=== PATIENT | female | born 2000 | race Caucasian/White ===

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

== ENCOUNTER 2020-08-31 17:54 | Emergency (ER) | payer OTHER, SELFPAY ==
--- NOTE | ~2020-08-31 | XR_ITS ---
XR shoulder RT min 2V 08/31/2020 18:34 INDICATION: Limited range of motion. Right shoulder pain. PROCEDURE: 4 views right shoulder COMPARISON: No prior studies for comparison. FINDINGS: Fracture, dislocation or subluxation is not identified. The soft tissues appear within norm al limits. No foreign bodies are identified. IMPRESSION: 1: NO ACUTE BONE OR JOINT ABNORMALITY IDENTIFIED. Reviewed, dictated and finalized at location A. [employer]
[2020-08-31 18:00] VITALS: BP 126/63; PULSE 63; RESP 18; TEMP 36.9; O2SAT 100
--- NOTE | 2020-08-31 18:16 | ED.UPPEXIN ---
HPI - Extremity Injury (Upper) General Chief Complaint: Extremity Injury, Upper Stated Complaint: right shoulder pain Time Seen by Provider: 08/31/20 18:17 Source: patient Mode of arrival: ambulatory Limitations: no limitations History of Present Illness HPI narrative: Anjum Joseph is a 19 yo female with no PMH who has R shoulder pain x 1 week. 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 Taken some ibuprofen but has not really improved. No obvious trauma other than repetitive work Related Data Allergies Allergy/AdvReac Type Severity Reaction Status Date / Time No Known Allergies Allergy Verified 11/15/19 11:02 Review of Systems Review of Systems: Narrative: CONSTITUTIONAL: Denies fever, chills, sweats. EYES: Denies visual changes, redness, discharge. ENT: Denies rhinorrhea, congestion, sore throat, otalgia. CARDIOVASCULAR: Denies chest pain, palpitations, edema. RESPIRATORY: Denies dyspnea, wheezing, cough GASTROINTESTINAL: Denies abdominal pain, nausea, vomiting, diarrhea. GENITOURINARY: Denies dysuria, hematuria, abnormal discharge SKIN: Denies rash or itching. Right shoulder pain NEUROLOGIC: Denies numbness, or focal weakness. PSYCHIATRIC: Denies anxiety or depression. [facility] Past Medical History Medical History No active medical problems Family History Family History Father High cholesterol Social History Social History Smoking status: Never smoker Alcohol intake: never Comments At time of signature, I agree with nursing past medical, surgical, social and family history. There is no relevant family history pertinent to the presenting complaint. Exam Narrative: Exam Narrative: GENERAL: This is a well-nourished, well-developed patient, in mild distress. HEAD: normocephalic, atraumatic. EYES: PERRL. Sclera clear/white. Vision is grossly intact. EARS: External ears normal, auditory canals clear and without drainage, TMs normal without perforation. Hearing grossly intact. NOSE: External nose normal without nasal discharge, nares without redness, no rhinorrhea. THROAT: Mucous membranes moist, posterior pharynx NECK: Neck supple, non-tender CARDIOVASCULAR: Regular rate and rhythm without murmurs, gallops, or rubs. RESPIRATORY: Clear to auscultation. Breath sounds equal bilaterally. No wheezes, rales, or rhonchi. GASTROINTESTINAL: Abdomen soft, non-tender, SKIN: warm, intact with no suspicious lesions or rash, good texture and turgor. NEURO: awake, alert, and oriented to person, place and time. There were no obvious focal neurologic abnormalities. Steady gait EXTREMITIES: Pain on arm extension, increased pain with raising arms over head, posterior movement. Point tenderness at 12 o clock on deltoid, stays within rotator cuff area. No neck tenderness or radiation down arm BACK: Nontender without deformity Course Course Emergency Course: Patient came to express care with right arm pain X-ray of right shoulder done-results are Patient started on Toradol and muscle relaxant- given baclofen Shoulder sling If not improved follow-up with orthopedic surgery Vital Signs Vital signs: Vital Signs Temperature 98.5 F 08/31/20 18:00 Pulse Rate 63 08/31/20 18:00 Respiratory Rate 18 08/31/20 18:00 Blood Pressure 126/63 08/31/20 18:00 Pulse Oximetry 100 08/31/20 18:00 Temperature 98.5 F 08/31/20 18:00 Pulse Rate 63 08/31/20 18:00 Respiratory Rate 18 08/31/20 18:00 Blood Pressure 126/63 08/31/20 18:00 Pulse Oximetry 100 08/31/20 18:00 MDM - Extremity Injury (Upper) Differential Diagnosis Differential diagnosis: Likely sprain and strain of wrist, dislocation of shoulder and ot
== END 2020-08-31 18:59 | disposition home or self-care (01) ==
PROVIDERS: Emergency Provider Nurse Practitioner
DX: S46.911A Strain of unspecified muscle, fascia and tendon at shoulder and upper arm level, right arm, initial encounter (principal); X58.XXXA Exposure to other specified factors, initial encounter
CPT/HCPCS: 73030; 99213; A4565; G0463

== ENCOUNTER 2020-12-09 12:24 | Emergency (ER) | payer OTHER, SELFPAY | END 2020-12-09 12:48 | PROVIDERS: Emergency Provider Nurse Practitioner Family; PCP Family Medicine | DX: Z53.21 Procedure and treatment not carried out due to patient leaving prior to being seen by health care provider (principal) | CPT/HCPCS: 99199 ==

== ENCOUNTER 2020-12-10 14:10 | Emergency (ER) | payer OTHER, SELFPAY ==
--- NOTE | ~2020-12-10 | XR_ITS ---
EXAMINATION: XR ankle LT min 3V EXAM DATE: 12/10/2020 14:40 INDICATION: Fell 1 wk ago, pain anterior medial LT ankle. Initial encounter. TECHNIQUE: Left ankle frontal, lateral and oblique projections obtained and reviewed. Comparison is m shon to prior examination from 11/15/2019. FINDINGS: The left ankle mortise appears intact. There are no acute fractures or dislocations ident ified. There is no subcutaneous gas. There is mild soft tissue swelling anteriorly. There are no r adiopaque foreign bodies. IMPRESSION: 1. Left ankle exam without acute osseous findings. Reviewed, dictated and finalized at location A.
[2020-12-10 14:19] VITALS: BP 148/63; PULSE 89; RESP 16; TEMP 37.7; O2SAT 99
--- NOTE | 2020-12-10 14:26 | ED.GENADULT ---
HPI - General Adult General Chief complaint: Extremity Injury, Lower Stated complaint: left foot injury Time Seen by Provider: 12/10/20 14:26 Source: patient Mode of arrival: ambulatory Limitations: no limitations History of Present Illness HPI narrative: 20-year-old female patient presents to the [facility] with complaints of left ankle pain x1 week. Patient states she fell down some stairs about a week ago. Patient states she has been able to walk on it but it is painful with putting pressure on it. Patient states she has been taking ibuprofen for the pain and icing it. Denies any numbness or tingling to the toes. Related Data Home Medications Medication Instructions Recorded Confirmed No Home Medications 12/10/20 12/10/20 Allergies Allergy/AdvReac Type Severity Reaction Status Date / Time No Known Allergies Allergy Verified 12/10/20 14:30 Review of Systems Review of Systems: Narrative: CONSTITUTIONAL: Denies fever, chills, or sweats. EYES: Denies visual changes, redness, or discharge. ENT: Denies rhinorrhea, congestion, sore throat, or otalgia. CARDIOVASCULAR: Denies chest pain, palpitations, or edema. RESPIRATORY: Denies cough or dyspnea. GASTROINTESTINAL: Denies abdominal pain, nausea, vomiting, or diarrhea. GENITOURINARY: Denies dysuria or hematuria. SKIN: Denies rash or itching. MUSCULOSKELETAL: Denies back pain, joint pain, or myalgia. Positive left ankle pain NEUROLOGIC: Denies headache, numbness, or weakness. PSYCHIATRIC: Denies anxiety or depression. [facility] Past Medical History Medical History (Updated 12/10/20 @ 15:07 by TASHA Santiago) Asthma Fractures Wrist Surgical History Surgical History (Updated 12/10/20 @ 14:27 by TASHA Santiago) History of tonsillectomy Family History Family History Father High cholesterol Social History Social History Smoking status: Never smoker Alcohol intake: never Comments At the time of my signature I agree with nursing past medical history, surgical, social, and family history. There is no relevant family history pertinent to the presenting complaint. Exam Narrative: Exam Narrative: GENERAL: Well-appearing, well-nourished, and in no acute distress. HEAD: Normocephalic, atraumatic. EYES: PERRLA and EOMI. ENT: Nares clear, no rhinorrhea or epistaxis. Mucous membranes moist. NECK: Supple. No lymphadenopathy CHEST: Clear to auscultation. No respiratory distress. HEART: Regular rate and rhythm. No murmur heard. Normal peripheral pulses. ABDOMEN: Soft, nontender, nondistended, normal active bowel sounds. EXTREMITIES: Patient is able to bear weight and ambulate but complaining of pain to left ankle with ambulation. The L ankle is without obvious asymmetry or deformity when compared to the R ankle. Patient can flex/extend, invert/[place]. No obvious surface trauma, ecchymosis, or soft tissue swelling. bony tenderness to palpation over the medial malleolus. Anterior talofibular ligament, posterior talofibular ligament, calcaneofibular ligament nontender and without swelling. tenderness of the midfoot, no pain over the proximal fifth metatarsal. Good DP and posterior tibial pulses and sensation to light touch normal. Talar tilt test is negative for ligament laxity to valgus or vargus stress. Negative anterior draw. Peroneal nerve is intact with strong eversion and plantar flexion. SKIN: Warm, dry, no rash. NEURO: No focal deficits. Alert and oriented x3. Course Reevaluation(s) Reevaluation #1: Reevaluated patient after her x-rays had resulted. Notified her that her x-ray is negative for any acute fracture. Discussed with her this is most likely a sprain. Discussed with her we will go ahead and wrap the left ankle and she can take Tylenol and ibuprofen as needed for pain as well as elevate and ice it to help with swelling and pain. Caroline
[2020-12-10 14:30] VITALS: BP 148/63; PULSE 89; RESP 16; TEMP 37.7; O2SAT 99
== END 2020-12-10 15:11 | disposition home or self-care (01) ==
PROVIDERS: Emergency Provider Nurse Practitioner Family; PCP Family Medicine
DX: S93.402A Sprain of unspecified ligament of left ankle, initial encounter (principal); W10.9XXA Fall (on) (from) unspecified stairs and steps, initial encounter; J45.909 Unspecified asthma, uncomplicated
CPT/HCPCS: 73610; 99213; G0463

== ENCOUNTER 2021-06-07 08:17 | Emergency (ER) | payer OTHER, SELFPAY ==
[2021-06-07 08:22] VITALS: BP 133/82; PULSE 83; RESP 16; TEMP 36.6; O2SAT 99
--- NOTE | 2021-06-07 08:44 | ED.FEMALEGU ---
HPI - Female Genitourinary General Chief complaint: Urogenital-Female Stated complaint: Poss UTi Time Seen by Provider: 06/07/21 08:29 Source: patient and RN notes reviewed Mode of arrival: ambulatory Limitations: no limitations History of Present Illness HPI Narrative: Patient presents today complaint of a 4-day history of lower abdominal pressure radiating to the back, dysuria, frequency. Denies hematuria, nausea or vomiting, sweats or chills, fever. Patient has been taking Azo without relief. No recent antibiotic use. MD elicited complaint: UTI Related Data Allergies Allergy/AdvReac Type Severity Reaction Status Date / Time No Known Allergies Allergy Verified 06/07/21 08:28 Review of Systems Review of Systems: CONSTITUTIONAL: Denies body aches, fever, chills, or sweats. EYES: Denies visual changes, redness, or discharge. ENT: Denies rhinorrhea, congestion, sore throat, or otalgia. CARDIOVASCULAR: Denies chest pain, palpitations, or edema. RESPIRATORY: Denies cough or dyspnea. GASTROINTESTINAL: Denies nausea, vomiting, or diarrhea.+ Abdominal pressure, flank pain GENITOURINARY: Denies hematuria. + Frequency, dysuria SKIN: Denies rash, itching, or wounds. MUSCULOSKELETAL: Denies back pain, joint pain, or myalgia. NEUROLOGIC: Denies headache, numbness, tingling, or weakness. PSYCH: Denies depression or anxiety. [facility] Past Medical History Medical History Asthma Fractures Wrist Surgical History Surgical History History of tonsillectomy Family History Family History Father High cholesterol Social History Social History Smoking status: Never smoker Alcohol intake: never Comments At time of signature, I have reviewed and agree with nursing past medical, surgical, social and family history unless otherwise noted. Please see nursing chart for further information. There is no relevant family history pertinent to the presenting complaint Exam Narrative: GENERAL: Well-appearing, well-nourished, and in no acute distress. HEAD: Normocephalic, atraumatic. EYES: EOMI. No redness or drainage. Conjunctivae normal. ENT: Mucous membranes pink and moist. NECK: Normal AROM. Supple. No lymphadenopathy. CHEST: No respiratory distress. Clear to auscultation. HEART: Regular rate and rhythm. No murmur appreciated. Normal peripheral pulses. ABDOMEN: Soft, nondistended, normal active bowel sounds.+ Suprapubic pressure, + mild bilateral CVAT MUSCULOSKELETAL: No bony tenderness. EXTREMITIES: Normal range of motion. No edema. SKIN: Warm, dry, no rash. Capillary refill normal. Normal skin turgor. NEURO: No focal deficits. Alert and oriented x3. Gait steady. PSYCH: Normal affect. No signs of depression or anxiety. Course Vital Signs Vital signs: Vital Signs Temperature 98 F 06/07/21 08:22 Pulse Rate 83 06/07/21 08:22 Respiratory Rate 16 06/07/21 08:22 Blood Pressure 133/82 06/07/21 08:22 Pulse Oximetry 99 06/07/21 08:22 Temperature 98 F 06/07/21 08:22 Pulse Rate 83 06/07/21 08:22 Respiratory Rate 16 06/07/21 08:22 Blood Pressure 133/82 06/07/21 08:22 Pulse Oximetry 99 06/07/21 08:22 Reviewed. Pt has been instructed to follow up with her PCP regarding her elevated blood pressure today. MDM - Female Genitourinary Differential Diagnosis Differential diagnosis: Likely urinary tract infection, vaginitis, cystitis and other (Pyelonephritis, interstitial cystitis) Lab Data Attestation: I reviewed the patient's lab results. Labs: Urine Glucose Negative Reference Range: Negative Urine Bilirubin Negative Reference R
== END 2021-06-07 08:50 | disposition home or self-care (01) ==
PROVIDERS: Emergency Provider Nurse Practitioner; PCP Family Medicine
DX: N30.01 Acute cystitis with hematuria (principal); J45.909 Unspecified asthma, uncomplicated
CPT/HCPCS: 81003; 87077; 87086; 87088; 87186; 99213; G0463

== ENCOUNTER 2023-03-13 09:28 | Emergency (ER) | payer OTHER, SELFPAY ==
[2023-03-13 09:36] VITALS: BP 116/63; PULSE 79; RESP 18; TEMP 36.8; O2SAT 100
--- NOTE | 2023-03-13 10:14 | ED.GENADULT ---
HPI - General Adult General Chief complaint: Urogenital-Female Stated complaint: Urinary Problem ( ) Source: patient Mode of arrival: ambulatory Limitations: no limitations History of Present Illness HPI narrative: Patient presents for evaluation of urinary symptoms since last night. She is currently , 19 weeks gestation, and had an appointment with her OBGYN yesterday morning. She was not experiencing urinary symptoms at that time. She has since experience dysuria, urinary urgency/frequency, suprapubic pressure and mild right-sided flank pain. No fever, chills, nausea, vomiting, hematuria, vaginal bleeding or discharge. She has already had a confirmed IUP per U/S during this . . Related Data Home Medications Medication Instructions Recorded Confirmed aspirin 81 mg tablet,delayed 81 mg PO DAILY 03/13/23 03/13/23 release ferrous fumarate 324 mg (106 mg 324 mg PO DAILY 03/13/23 03/13/23 iron) tablet (Ferrocite) vit no.95-ferrous 1 tablet PO DAILY 03/13/23 03/13/23 fumarate 28 mg-folic acid 800 mcg tablet () Allergies Allergy/AdvReac Type Severity Reaction Status Date / Time No Known Allergies Allergy Verified 03/13/23 10:10 Review of Systems Review of Systems: CONSTITUTIONAL: Denies fever, chills, or sweats. EYES: Denies visual changes, redness, or discharge. ENT: Denies rhinorrhea, congestion, sore throat, or otalgia. CARDIOVASCULAR: Denies chest pain, palpitations, or edema. RESPIRATORY: Denies cough or dyspnea. GASTROINTESTINAL: Denies abdominal pain, nausea, vomiting, or diarrhea. GENITOURINARY: Reports dysuria, urinary frequency/hesitancy, suprapubic pressure. Denies hematuria, vaginal bleeding/discharge SKIN: Denies rash or itching. MUSCULOSKELETAL:Reports mild right sided flank pain. Denies back pain otherwise, joint pain, or myalgia. NEUROLOGIC: Denies headache, numbness, dizziness, or weakness. PSYCHIATRIC: Denies anxiety or depression. [facility] Past Medical History Medical History Asthma Fractures Wrist Surgical History Surgical History History of tonsillectomy Family History Family History Father High cholesterol Social History Social History Smoking status: Never smoker Alcohol intake: never Substance use: never Additional living arrangements comments: Lives with fiance Gender identity (if verbalized by the patient): Female Sexual Orientation (if Verbalized by the Patient): Straight or Heterosexual Spiritual care concerns: No Exam Narrative: GENERAL: Well-appearing, well-nourished, and in no acute distress. HEAD: Normocephalic, atraumatic. EYES: PERRLA and EOMI. ENT: Nares clear, no rhinorrhea or epistaxis. Mucous membranes moist. Oropharynx without tonsillar hypertrophy exudate or other lesions. Bilateral TMs pearly sanchez nonbulging NECK: Supple. No adenopathy or masses. No carotid bruits or JVD CHEST: Clear to auscultation. No respiratory distress. No wheezes rales or rhonchi HEART: Regular rate and rhythm. No murmur heard. Normal peripheral pulses. ABDOMEN: Soft, nontender, nondistended, normal active bowel sounds. BACK: No CVA tenderness EXTREMITIES: Normal range of motion. No edema. SKIN: Warm, dry, no rash. NEURO: No focal deficits. Alert and oriented x3. PSYCH: Normal mood and affect. Course Course Emergency Course: This is a 22-year-old female who presented for evaluation of urinary symptoms. She has leukocytes present today. Will tx with cefpodoxime. Send urine for culture. Follow with OBGY and primary provider next week. Go to the ER for worsening symptoms. Pt in agreement with plan of care. Level of Care: Express Care Visit Vital Signs Vi
== END 2023-03-13 10:15 | disposition home or self-care (01) ==
PROVIDERS: Emergency Provider Nurse Practitioner
DX: O23.42 Unspecified infection of urinary tract in pregnancy, second trimester (principal); N39.0 Urinary tract infection, site not specified; Z3A.19 19 weeks gestation of pregnancy; O99.512 Diseases of the respiratory system complicating pregnancy, second trimester; J45.909 Unspecified asthma, uncomplicated; Z79.82 Long term (current) use of aspirin
CPT/HCPCS: 81003; 87077; 87086; 87186; 99213; G0463

== ENCOUNTER 2025-03-21 17:53 | Emergency (ER) | payer SELFPAY ==
--- NOTE | ~2025-03-21 | XR_ITS ---
EXAM: XR finger 1st LT min 2V DATE: 03/21/2025 18:17 HISTORY: JAMMING INJURY, PROX PHALANX PAIN . COMPARISON: None available. FINDINGS: Normal mineralization. No fracture or dislocation. No lytic or blastic lesion. Joint space s are maintained. No erosion or periosteal change. Soft tissues within normal limits. IMPRESSION: No acute osseous finding in the left thumb. Reviewed, dictated and finalized at location K.
--- OUTSIDE RECORDS SUMMARY | 2025-03-21 17:56 | XMS_ITS | Clinical Summary ---
Author Organization [facility] Address [address] [place] [address] Phone Care Team Providers Care Data Processing Control Clerk Name Role Phone Chucho Kruger MD Unavailable [phone] Allergies Active Allergy Reactions Criticality Noted Date Comments Ketorolac Tromethamine Swelling 05/04/2017 Tramadol Vomiting 05/04/2017 Medications No known medications Active Problems Problem Noted Date Diagnosed Date Acute appendicitis, unspecified acute appendicit is type 12/31/2023 Cough, persistent 11/07/2018 Well woman exam (no gynecological exam) 11/08/19 19 Need for vaccination for meningococcus 9 Cyst of subcutaneous tissue 11/07/2018 Immunizations Immunization Administration Dates Next Due DTAP VACCINE 01/25/2006, 3,03/11/2001,01/20,2000 HEP B/HIB Combined Vaccine 03/11/2001,2000 Hepatitis A Vaccine,unspecif ied Formulation 08/20/2005 Hepatitis A, Pediatric, Unsp ecified Formulation 06/22/2007 Hepatitis B Vaccine,unspecif ied Formulation 2000 Hib Vaccine,unspecified Formulation 01/20/2001 Hpv, Unspecified Formulation 06/14/2012 Human Papillomavirus (HPV) 9 -valent Vaccine 09/19/2015,06/26/2015 Influenza Vaccine, Quadrivalent, PF 06/26/2015,1 Influenza Vaccine,unspecifie d Formulation 06/14/2012,08/14/2011,08/15/2003 MMR Vaccine 01/25/2006,09/13/2002 Meningococcal Group B OMV 02/03/2017 Meningococcal MCV4O 11/07/2018 Meningococcal Vaccine 02/03/2017 Meningococcal Vaccine, Unspe cified Formulation 06/14/2012 Pneumococcal PCV, Unspecifie d Formulation 03/11/2001,2000 Pneumococcal Vaccine Adult - 23 Valent 1 Polio Vaccine,unspecified Formulation ,09/13/2002,01/20/2001,11/19 TDAP Vaccine 06/14/2012 Varicella Vaccine Live 06/22/2007,09/13/2002 Social History Tobacco Use Types Packs/Day Years Used Date Smoking Tobacco: Never Smokeless Tobacco: Never Tobacco Cessation:Counseling Given: Not Answered Alcohol Use Standard Drinks/Week Comments No 0 (1 standard drink = 0.6 oz pur e alcohol) PHQ-2 Answer Date Recorded Total Score - Questions 1-9 0 04/2021 Sexually Active Control Partners Comments Yes Male Comments No Sex and Gender Information Value Date Recorded Sex Assigned at Not on file Legal Sex Female 9:06 PM CDT Gender Identity Not on file Sexual Orientation Not on file Last Filed Vital Signs Vital Sign Reading Time Taken Comments Blood Pressure 131/82 02/06/2024 3:30 AM CDT Pulse 63 02/06/2024 3:30 AM CDT Temperature 36.4 C (97.6 F) 02/05/2024 11:51 PM CDT Respiratory Rate 17 02/06/2024 3:30 AM CDT Oxygen Saturation 98% 02/06/2024 3:30 AM CDT Inhaled Oxygen Concentration - - Weight 122.5 kg (270 lb) 02/05/2024 11:51 PM CDT Height 165.1 cm (5' 5) 02/05/2024 11:51 PM CDT Body Mass Index 44.93 02/05/2024 11:51 PM CDT Plan of Treatment Health Maintenance Due Date Last Done Comments Hepatitis C Virus (HCV) Screening 2000 SARS-COV-2 Immunization ( season) 2024 Pap Smear 04/28/2025 04/28/2022 Influenza Immunization (#1) 05/07/202506/07, 06/26/2014, 06/14/2012, Additional history exists DTaP/Tdap/Td Immunization (8 - Td or Tdap) 04/29/2033 04/29/2023, 06/14/2012, 01/25/2006, Additional history exists Respiratory Syncytial Virus (RSV) Immunization (Adult) (1 - 1-dose 75+ series) 2075 Hepatitis B Immunization Completed 001, 2000, 2000 Pneumococcal Immunization Combined Aged Out 03/11/2001, 01/20/2001, 2000 No longer eligible based on patient's age to complete this topic Human Papillomavirus (HPV) Immunization Completed 09/19/2015, 06/26/2015, 06/14/2012 Meningococcal B Immunization Discontinued 02/03/2017 Meningococcal Immunization (ACWY) Completed 11/07/2018, 02/03/2017, 06/14/2012 Rotavirus Immunization Aged Out No lo nger eligible based on patient's age to complete this topic Procedures Procedure Name Priority Date/Time Associated Diagnosis Comments PATHOLOGY CYTOLOGY WOODEN TANK ERECTOR 04/28/2022 12:00 AM CDT from Last 3 Months or Most Recently Relevant to Health Maintenance Results * PATHOLOGY CYTOLOGY WOODEN TANK ERECTOR (04/28/2022 12:00 AM CDT) 04/28/2022 us Not On File Provider PATHOLOGY/CYTOLOGY ORDERABL ES Final Result SCAN from Last 3 Months or Most Recently Relevant to Health Maintenance Insurance MEDICAID [place] Advance Directives * Full Code (Latest Code Status on File) Date Activated Date Inactivated Comments 12/31/2023 11:08 AM 12/31/2023 3:18 PM CPR-Full Tr eatment: FULL ARREST: Attempt Resuscitation/CPR wit intubation and mechanical ventilation. PRE-ARREST: Use entire range of life support measures to stabilize the patient. Care Teams Data Processing Control Clerk Relationship Specialty Start Date End Date Chucho Kruger MD [address] [id number] Consulting Physician General Surgery 01/11/24
--- OUTSIDE RECORDS SUMMARY | 2025-03-21 17:56 | XMS_ITS | Clinical Summary ---
Author Organization [facility] Address [address] [place] [address] Care Team Providers Care Edge Stainer Machine Name Role Phone Cristin Alvares MD Primary Care Provider [phone] Allergies Active Allergy Reactions Criticality Noted Date Comments Ketorolac Tromethamine Swelling Medium 05/04/2017 Tramadol Vomiting Low 05/04/2017 Medications Ferrocite 324 mg (106 mg iron) tablet Take 1 tablet by mouth daily 3 Active 28 mg iron- 800 mcg tablet Take 1 tablet by mouth daily 3 Active benzocaine-ment hoL (DERMOPLAST) 20-0.5 % aerosolIndicati ons:Minor Skin Wound Pain Apply 1 Application (1 spray total) topically as needed for other (perianal area for pain) 78 g 3 Active docusate sodium (COLACE) 100 mg capsuleIndicati ons:constipatio n,Stool Softener Take 1 capsule (100 mg total) by mouth 2 (two) times a day as needed for constipation for up to 18 days 18 capsule 3 Active Active Problems Problem Noted Date Diagnosed Date hemorrhage 08/13/2023 41 weeks gestation of 08/09/2023 Comments Yes Immunizations Immunization Administration Dates Next Due Varicella 08/13/2023 Surgical History Surgery Date Site/Laterality Comments [place] TONSILLECTOM[place] PRIMARY/SEC ONDARY <AGE 12 Tonsillectomy - 2004 [facility] (Added by [facility] Conv) ADENOIDECTOMY Medical History Medical History Date Comments Wrist fracture, bilateral Asthma when she was 11 was last time used inhaler Social History Tobacco Use Types Packs/Day Years Used Date Smoking Tobacco: Former Cigarettes Smokeless Tobacco: Never Tobacco Cessation:Counseling Given: Not Answered Alcohol Use Standard Drinks/Week Comments No 0 (1 standard drink = 0.6 oz pur e alcohol) Social Connection and Isolat ion Panel [NHANES] Answer Date Recorded In a typical week, how many times do you talk on the phone with family, friends, or neighbors? More than three times a week 08/09/2023 How often do you get togethe r with friends or relatives? More than three times a week 08/09/2023 How often do you attend chur ch or religion services? Never 08/09/2023 Do you belong to any clubs o r organizations such as yarsanism groups, unions, fraternal or athletic groups, or school groups? No 08/09/2023 How often do you attend meet ings of the clubs or organizations you belong to? Never 08/09/2023 Are you , , di vorced, , never , or living with a partner? Living with partner 08/09/2023 AUDIT-C Answer Date Recorded Q1: How often do you have a drink containing alcohol? Never 08/09/2023 Q2: How many drinks containi ng alcohol do you have on a typical day when you are drinking? Patient does not drink Q3: How often do you have si x or more drinks on one occasion? Never 08/09/2023 Overall Financial Resource Strain (CARDIA) Answe r Date Recorded How hard is it for you to pa y for the very basics like food, housing, medical care, and heating? Not hard at all 08/09/2023 PHQ-2 Answer Date Recorded PHQ-2 Total Score (If total score is 3 or more points, staff should administer the PHQ-9) 0 08/09/2023 [facility] Occup[facility] ional [facility] - Occupational Stress Questionnaire Answer Date Recorded Do you feel stress - tense, restless, nervous, or anxious, or unable to sleep at night because your mind is troubled all the time - these days? Not at all 08/09/2023 Exercise Vital Sign Answer Date Recorde d On average, how many days pe r week do you engage in moderate to strenuous exercise (like a brisk walk)? 0 days 08/09/2023 On average, how many minutes do you engage in exercise at this level? 0 min 08/09/2023 Hunger Vital Sign Answer Date Recorded Within the past 12 months, y ou worried that your food would run out before you got the money to buy more. Never true 08/09/20 23 Within the past 12 months, t he food you bought just didn't last and you didn't have money to get more. Never true 08/09/2023 PRAPARE - Transportation Answer Date Re corded In the past 12 months, has l ack of transportation kept you from medical appointments or from getting medications? No 12/2022 In the past 12 months, has l ack of transportation kept you from meetings, work, or from getting things needed for daily living? No 08/09/2023 Housing Stability Vital Sign Answer Jovan e Recorded In the last 12 months, was t here a time when you were not able to pay the mortgage or rent on time? No 08/09/2023 In the last 12 months, how many places have you lived? 1 08/09/2023 In the last 12 months, was t here a time when you did not have a steady place to sleep or slept in a care home (including now)? No 08/09/2023 Personal Safety Answer Date Recorded Have you ever been in or are you currently in a harmful physical or emotional relationship or is someone making you feel afraid or unsafe? 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 SHOESHINER Gender Identity Not on file Sexual Orientation Not on file Obstetrics History Para Term AB IAB SAB Ectopic Multiple Livin g Live Births 2 1 1 0 0 0 0 0 0 1 1 Date Outcome GA Total Labor Labor/2nd/3rd Weight Sex Type Anes PTL Rhiannon A1 A5 Name Clin 2022 Term 41w 2d 12h 24m 9h 55m/2h 13m/0h 16m 3.92 kg (8 lb 10.3 oz) F Vagina l Epidur al N Livin g 9 9 Alann Amye Issac Hameed se, MD Complications:None Delivery Location:This Facil ity ([facility]) Current Last Filed Vital Signs Vital Sign Reading Time Taken Comments Blood Pressure 138/82 08/02/2024 3:30 PM SHOESHINER Pulse 72 08/02/2024 3:30 PM SHOESHINER Temperature 36.7 C (98 F) 08/02/2024 12:06 PM SHOESHINER Respiratory Rate 18 08/02/2024 3:30 PM SHOESHINER Oxygen Saturation 98% 08/02/2024 3:30 PM SHOESHINER Inhaled Oxygen Concentration - - Weight 72.6 kg (160 lb) 08/02/2024 12:06 PM SHOESHINER Height 152.4 cm (5') 08/02/2024 12:06 PM SHOESHINER Body Mass Index 31.25 08/02/2024 12:06 PM SHOESHINER Plan of Treatment Health Maintenance Due Date Last Done Comments Hepatitis C Screening 2000 Cervical Cancer Screening 04/28/2023 04/28/2022 Chlamydia and Gonorrhea (GC/CT) Screening 04/28/2023 04/28/2022 Regular Well Visit/Exam 18-64 04/28/2023 04/28/2022 Depression Screening 07/25/2024 07/25/2023, 07/25/2023, 07/11/2023, Additional history exists Influenza Vaccine (Season Ended) 2025 06/26/2015, 06/26/2014, 06/26/2014, Additional history exists DTaP/Tdap/Td Vaccine (8 - Td or Tdap) 04/29/2033 04/29/2023, 06/14/2012, 01/25/2006, Additional history exists Hepatitis B Screening Completed 03/11/2001 , 03/11/2001, 2000, Additional history exists Pneumococcal vaccine <65 Aged Out 001, 01/20/2001, 2000 No longer eligible based on patient's age to complete this topic HPV Vaccines Completed 09/19/2015, 06/07, 06/14/2012 Varicella Vaccines Completed 08/13/2023, 1 , 09/13/2002 Procedures Procedure Name Priority Date/Time Associated Diagnosis Comments N. GONORRHOEAE/C. TRACHOMATIS AMPLIFICATION Routine 04/28/2022 2:40 PM CDT Screening examination for venereal disease PAP WITH REFLEX TO HIGH RISK HPV Routine 04/28/2022 11:21 AM CDT Screening for malignant neoplasm of the cervix from Last 3 Months or Most Recently Relevant to Health Maintenance Results * N. gonorrhoeae/C. trachomatis Amplification Thin prep (04/28/2022 2:40 PM CDT) C. trachomatis Not detected Not detected ANTONIETTA N. gonorrhoeae Not detected Not detected ANTONIETTA ELIZABETH Comment: Testing performed by the [facility]. This assay detects Chlamydia trachomatis and Neisseria gonorrhoeae by nucleic acid amplification testing (NAAT). This test is approved by the [place] Food and Drug Administration and the performance characteristics have been verified by the laboratory. The performance characteristics of this test have not been evaluated in women or individuals less than 16 years of age. Thin prep (None) 04/28/2022 2:40 PM CDT 04/30/2022 8:22 AM CDT Opal Washington DO LAB MICROBIOLOGY - GENE RAL ORDERABLES Final Result [id number] [place] [address] * (ABNORMAL) Pap with reflex to High Risk HPV (04/28/2022 11:21 AM CDT) Thin prep (Pap test) 04/28/2022 11:21 AM CDT 04/28/2022 11:21 AM CDT Narrative PATHOLOGY - 04/30/2022 3:15 PM CDT [facility] Department of Pathology [address] [place] [id number] Final Report with Addendum Note to Patients: This report may contain a detailed description of human tissue sent by a health care provider to the laboratory for pathologic evaluation. The content of this report is essential for diagnosis and may provide important critical findings. This information may be unfamiliar to patients to review without a medical professional present. It is advised that the patient review this report in the presence of a health care provider who can answer questions and explain the details. Patient Name: ANJUM TRUJILLO Address: [address] [place] [address] Gender: F : 2000 (Age: 21) Service: Laboratory [facility] [id number] Patient Type: Ref Lab Taken: 04/28/2022 Received: 04/28/2022 Accessioned:: 04/29/2022 Reported: 04/30/2022 Physician(s): Carmita Brothers D.O. Diagnosis: Source of Specimen: Imaged Thinprep Pap Test w/ Reflex HPV - Manager Switch Cytologic Material Specimen Adequacy: - Satisfactory for evaluation; endocervical/transformation zone component present General Category: - Epithelial cell abnormality Interpretation/Results: - Atypical squamous cells of undetermined significance; - High risk HPV test pending -- addendum to follow JONA Finch(ASCP)Salome Elias M.D. Report Electronically Reviewed and Signed Out By Salome Elias M.D. 04/30/2022 15:15:49Addenda: HPV Test Interpretation NEGATIVE for types 16, 18, 31, 33, 35, 39, 45, 51, 52, 56, 58, 59, 66 and 68. Test performed utilizing Gen-Probe Aptima assay. JONA Finch(ASCP)Report Electronically Reviewed and Signed Out By SHERRIE FinchASCP) 05/12/2022 10:00:47 Specimen(s) Received: A: Imaged Thinprep Pap Test w/ Reflex HPV - Manager Switch Cytologic Material Clinical History: Last Menstrual Period: 03/14/2022 The Pap test is a screening test used to aid in the detection of cervical cancer and its precursors. It should not be the sole means by which malignant and premalignant lesions are diagnosed. Both false negative and false positive results may occur. It also has poor sensitivity for the detection of endometrial lesions and should not be used to evaluate suspected endometrial abnormalities. For these reasons it is most important to obtain Pap tests at regular intervals. The performance characteristics of some immunohistochemical stains, fluorescence in-situ hybridization tests and immunophenotyping by flow cytometry cited in this report (if any) were determined by the Surgical Pathology Department at [facility] as part of an ongoing quality control clerk program and in compliance with federally mandated regulations drawn from the Clinical Laboratory Improvement Act of 1988 (CLIA '88). Some of these tests rely on the use of analyte specific reagents and are subject to specific labeling requirements by the [place] Food and Drug Administration. Such diagnostic tests may only be performed in a facility that is certified by the Department of Health and Human Services as a high complexity laboratory under CLIA '88. The FDA has determined that such clearance or approval is not necessary. This test is used for clinical purposes. It should not be regarded as investigational or for research. Nevertheless, federal rules concerning the medical use of analyte specific reagents require that the following disclaimer be attached to the report: This test was developed and its performance characteristics determined by the Surgical Pathology Department [facility]. It has not been cleared or approved by the [place]. [place]. Food and Drug Administration. Opal Washington DO LAB CYTOLOGY ORDERABLES Final Result PATHOLOGY [id number] [id number] from Last 3 Months or Most Recently Relevant to Health Maintenance [place] [address] [address] [place] [address] [facility] MEDICAID [facility] MEDICAID Advance Directives For more information, please contact: [phone] * Full Code (Latest Code Status on File) Date Activated Date Inactivated Comments 08/11/2023 9:48 PM 08/13/2023 11:06 PM * Full Code Date Activated Date Inactivated Comments 08/09/2023 7:05 PM 08/11/2023 9:48 PM Full CPR in case of cardiopulmonary arrest Care Teams Edge Stainer Machine Relationship Specialty Start Date End Date Cristin Alvares MD PCP - General Family Medicine 04/19/23
--- OUTSIDE RECORDS SUMMARY | 2025-03-21 17:56 | XMS_ITS | Data Portability ---
Author Organization [facility] SAMARARobert Lopez Talia Address [address] [place] [address] Care Team Providers Care Supervisor Cook Room Name Role Phone MARJ NAVA Primary Care Provider [phone] KELSI REED [facility] Assessment Encounter Date Assessment Date Assessment LastModified by Organization Details LastModified Time 07/26/2023 07/26/2023 Pt's case was discussed w/resident. Documentation was reviewed, and I agree w/resident's note. Dr. Ivan [email or web address] Not available 07/30/2023 07:49:10 Plan of Treatment Reminders Order Date Submit Date Provider Last Modified By Organization Details Last Modified Time Details Appointments None recorded. Lab CBC w/ auto diff 2023 024 [facility], [address], [address], 4 06:22:19 urinalysi s, dipstick 2022 023 [email or web address] In-Office Order, Internal Use Only DO Not Attach Compendium DO Not Attach Compendium, Do Not Delete/merge, [id number] 3 15:57:18 urinalysi s, dipstick 2022 023 [email or web address] In-Office Order, Internal Use Only DO Not Attach Compendium DO Not Attach Compendium, Do Not Delete/merge, [id number] 3 12:04:46 Referral None recorded. Procedures None recorded. Surgeries None recorded. Imaging None recorded. Medication Orders Loestrin Fe 09/25 (28-Day) 1 mg-20 mcg (21)/75 mg (7) tablet 2023 024 [email or web address] [id number], [address] , [place], [place], [id number], 12:05:06 Patient TargetsNo targets recorded. Patient Instructions Encounter Date Encounter Id Patient Instructions Last Modified By Organization Details Last Modified Time 08/03/2023 [id number] On the date of this encounter, I saw and examined the patient, personally verifying the wagner and critical findings in the resident s note. I reviewed and agree with the resident/fellow s findings and plan. ~MD [email or web address] [email or web address] Not available 08/18/2023 09:25:21 08/24/2023 [id number] On the date of this encounter, I was immediately available to assist the resident/fellow in the care of the patient, and have reviewed and agree with the resident s findings and plan of care. ~MD Derek [email or web address] Not available 09/02/2023 09:19:38 10/07/2023 [id number] edinburgh depression scale* DAYANA Not available 10/08/2023 09:50:27 A healthy lifestyle: care instructions [email or web address] Not available 10/07/2023 16:18:32 Attending Physician Addendum I did not personally see or examine the patient with the resident. I was physically present to provide indirect supervision through entire encounter. I have reviewed the documentation and agree with the history, physical findings, work-up, and medical decision making as recorded. Elaine Beltran MD [email or web address] Not available 10/21/2023 12:05:39 Reason for Referral None Reported. Results Created Date Observation Date Name Description Value Unit Range Abnormal Flag Note LastModifiedBy Organization Detail LastModifiedTime 07/06/2007/06/2023 CBC WITH DIFFE RENTI AL/PL ATELE T WBC 15.0 x10e3 /uL 3.4-10 .8 above high normal Not Available [facility] [address] [place], [address], 07/06/2023 20:08:34 07/06/2007/06/2023 CBC WITH DIFFE RENTI AL/PL ATELE T RBC 3.82 x10e6 /uL 3.77-[address] [facility] [address] [place], [address], 07/06/2023 20:08:34 07/06/20 23 07/06/2023 CBC WITH DIFFE RENTI AL/PL ATELE T hemoglobin 10.6 g/dL 11.1-1 5.9 below low normal Not Available [facility] [address] [place], [address], 07/06/2023 20:08:34 07/06/2007/06/2023 CBC WITH DIFFE RENTI AL/PL ATELE T hematocrit 33.0 % 34.0-4 6.6 below low normal Not Available [facility] [address] [place], [address], 07/06/2023 20:08:34 07/06/20 23 07/06/2023 CBC WITH DIFFE RENTI AL/PL ATELE T MCV 86 fL 79-[address] [facility] [address] [place], [address], 07/06/2023 20:08:34 07/06/20 23 07/06/2023 CBC WITH DIFFE RENTI AL/PL ATELE T MCH 27.7 pg 26.6-[address] [facility] [address] [place], [address], 07/06/2023 20:08:34 07/06/20 23 07/06/2023 CBC WITH DIFFE RENTI AL/PL ATELE T MCHC 32.1 g/dL 31.5-[address] [facility] [address] [place], [address], 07/06/2023 20:08:34 07/06/20 23 07/06/2023 CBC WITH DIFFE RENTI AL/PL ATELE T RDW 13.1 % 11.5-[address] [facility] [address] [place], [address], 07/06/2023 20:08:34 07/06/2007/06/2023 CBC WITH DIFFE RENTI AL/PL ATELE T platelets 223 x10e3 /uL 150-[address] [facility] [address] [place], [address], 07/06/2023 20:08:34 07/06/2007/06/2023 CBC WITH DIFFE RENTI AL/PL ATELE T neutrophils 77 % notest b. Not Available [facility] [address] [place], [address], 07/06/2023 20:08:34 07/06/2007/06/2023 CBC WITH DIFFE RENTI AL/PL ATELE T lymphs 13 % notest b. Not Available [facility] [address] [place], [address], 07/06/2023 20:08:34 07/06/2007/06/2023 CBC WITH DIFFE RENTI AL/PL ATELE T monocytes 7 % notest b. Not Available [facility] [address] [place], [address], 07/06/2023 20:08:34 07/06/2007/06/2023 CBC WITH DIFFE RENTI AL/PL ATELE T eos 2 % notest b. Not Available [facility] [address] [place], [address], 07/06/2023 20:08:34 07/06/20 23 07/06/2023 CBC WITH DIFFE RENTI AL/PL ATELE T basos 0 % notest b. Not Available [facility] [address] [place] [address], [address], 07/06/2023 20:08:34 07/06/20 23 07/06/2023 CBC WITH DIFFE RENTI AL/PL ATELE T neutrophils (absolute) 11.5 x10e3 /uL 1.4-7. 0 above high normal Not Available [facility] [address] [place], [address], 07/06/2023 20:08:34 07/06/20 23 07/06/2023 CBC WITH DIFFE RENTI AL/PL ATELE T lymphs (absolute) 1.9 x10e3 /uL 0.7-3. [address] [facility] [address] [place], [address], 07/06/2023 20:08:34 07/06/20 23 07/06/2023 CBC WITH DIFFE RENTI AL/PL ATELE T monocytes(ab solute) 1.1 x10e3 /uL 0.1-0. 9 above high normal Not Available [facility] [address] [place], [address], 07/06/2023 20:08:34 07/06/20 23 07/06/2023 CBC WITH DIFFE RENTI AL/PL ATELE T eos (absolute) 0.3 x10e3 /uL 0.0-0. [address] [facility] [address] [place], [address], 07/06/2023 20:08:34 07/06/20 23 07/06/2023 CBC WITH DIFFE RENTI AL/PL ATELE T baso (absolute) 0.1 x10e3 /uL 0.0-0. [address] [facility] [address] [place], [address], 07/06/2023 20:08:34 07/06/20 23 07/06/2023 CBC WITH DIFFE RENTI AL/PL ATELE T immature granulocytes 1.4 % notest b. Not Available [facility] [address] [place], [address], 07/06/2023 20:08:34 07/06/20 23 07/06/2023 CBC WITH DIFFE RENTI AL/PL ATELE T immature grans (abs) 0.2 x10e3 /uL 0.0-0. 1 above high normal Not Available [facility] [address] [place], [address], 07/06/2023 20:08:34 07/06/20 23 07/06/2023 CBC WITH DIFFE RENTI AL/PL ATELE T NRBC 0 % 0-[address] [facility] [address] [place], [address], 07/06/2023 20:08:34 07/06/20 23 07/07/2023 NUSWA B VAGIN ITIS PLUS (VG+) atopobium vaginae Modera te - 1 score Not Available [facility] ([facility]) [address], [place], [address], 07/08/2023 15:11:34 07/06/20 23 07/07/2023 NUSWA B VAGIN ITIS PLUS (VG+) bvab 2 Low - 0 score Not Available [facility] ([facility]) [address] [place], [address], 07/08/2023 15:11:34 07/06/20 23 07/07/2023 NUSWA B VAGIN ITIS PLUS (VG+) megasphaera 1 Low - 0 score Calcu late total score by an g the 3 indiv idual bacte rial vagin osis (BV) marke r score s toget her. Total score is inter prete d as follo ws: Total score 0-1: Indic ates the absen ce of BV. Total score 2: Indet ermin ate for BV. Addit ional clini luzma data shoul d be evalu ated to estab milvia a diagn osis. Total score 3-6: Indic ates the prese nce of BV. This test was devel oped and its perfo rmanc e alejandro cteri stics deter mined by [facility]. It has not been clear ed or appro mele by the Food and Drug Admin istra tion. Not Available [facility] ([facility]) [address] [place], [address], 07/08/2023 15:11:34 07/06/20 23 07/07/2023 NUA B VAGIN ITIS PLUS (VG+) tatyana albicans, [place] Negati ve negati ve Not Available [facility] ([facility]) [address] [place], [address], 07/08/2023 15:11:34 07/06/2007/07/2023 NUA B VAGIN ITIS PLUS (VG+) tatyana glabrata, [place] Negati ve negati ve Not Available [facility] ([facility]) [address] [place], [address], 07/08/2023 15:11:34 07/06/20 23 07/07/2023 NUA B VAGIN ITIS PLUS (VG+) trich vag by [place] Negati ve negati ve Not Available [facility] ([facility]) [address] [place], [address], 07/08/2023 15:11:34 07/06/20 23 07/07/2023 NUA B VAGIN ITIS PLUS (VG+) chlamydia trachomatis, [place] Negati ve negati ve Not Available [facility] ([facility]) [address] [place], [address], 07/08/2023 15:11:34 07/06/20 23 07/07/2023 NUSWA B VAGIN ITIS PLUS (VG+) neisseria gonorrhoeae, [place] Negati ve negati ve Not Available [facility] ([facility]) [address] [place], [address], 07/08/2023 15:11:34 07/06/20 07/08/2023 STREP GP B [place] strep gp B [place] Positi ve negati ve abnormal Cente rs for Disea se Contr ol and Preve ntion (CDC) and Ameri can Congr ess of Obste trici ans and Gynec ologi sts (ACOG ) guide lines for preve ntion of perin atal group B strep tococ luzma (GBS) disea se speci fy co-co llect ion of a vagin al and recta l swab speci men to maxim ize sensi tivit y of GBS detec tion. Per the CDC and ACOG, swabb ing both the lower vagin a and rectu m subst antia lly incre ases the yield of detec tion lonnie red with sampl ing the vagin a alone . Penic illin G, ampic illin , or cefaz mario are indic ated for intra partu m proph ylaxi s of perin atal GBS colon izati on. Refle x susce ptibi lity testi ng shoul d be perfo rmed prior to use of clind amyci n only on GBS isola pamella from penic illin -noe rgic women who are consi dered a high risk for anaph ylaxi s. Treat ment with vanco mycin witho ut addit ional testi ng is warra nted if resis tance to clind amyci n is noted . Not Available [facility] ([facility]) [address], [place], [address], 07/08/2023 15:11:35 07/14/20 23 07/14/2023 urina lysis , dipst ick Leukocytes Negati ve Not Available In-Office Order Internal Use Only DO Not Attach Compendium DO Not Attach Compendium, Do Not Delete/merge, [id number] 07/13/2023 10:29:28 07/14/20 23 07/14/2023 urina lysis , dipst ick Nitrite negati ve Not Available In-Office Order Internal Use Only DO Not Attach Compendium DO Not Attach Compendium, Do Not Delete/merge, [id number] 07/13/2023 10:29:28 07/14/20 23 07/14/2023 urina lysis , dipst ick Urobilinogen 1 Not Available In-Of fice Order Internal Use Only DO Not Attach Compendium DO Not Attach Compendium, Do Not Delete/merge, [id number] 07/13/2023 10:29:28 07/14/20 23 07/14/2023 urina lysis , dipst ick Protein Negati ve Not Available In-Office Order Internal Use Only DO Not Attach Compendium DO Not Attach Compendium, Do Not Delete/merge, [id number] 07/13/2023 10:29:28 07/14/20 23 07/14/2023 urina lysis , dipst ick pH 6.0 Not Available In-Office Order Internal Use Only DO Not Attach Compendium DO Not Attach Compendium, Do Not Delete/merge, [id number] 07/13/2023 10:29:28 07/14/20 23 07/14/2023 urina lysis , dipst ick Blood Negati ve Not Available In-Office Order Internal Use Only DO Not Attach Compendium DO Not Attach Compendium, Do Not Delete/merge, [id number] 07/13/2023 10:29:28 07/14/20 23 07/14/2023 urina lysis , dipst ick Specific [place] 1.025 Not Available In-Off ice Order Internal Use Only DO Not Attach Compendium DO Not Attach Compendium, Do Not Delete/merge, [id number] 07/13/2023 10:29:28 07/14/20 23 07/14/2023 urina lysis , dipst ick Ketone Small Not Available In-Office Order Internal Use Only DO Not Attach Compendium DO Not Attach Compendium, Do Not Delete/merge, [id number] 07/13/2023 10:29:28 07/14/20 23 07/14/2023 urina lysis , dipst ick Bilirubin Negati ve Not Available In-Office Order Internal Use Only DO Not Attach Compendium DO Not Attach Compendium, Do Not Delete/merge, [id number] 07/13/2023 10:29:28 07/14/20 23 07/14/2023 urina lysis , dipst ick Glucose Negati ve Not Available In-Office Order Internal Use Only DO Not Attach Compendium DO Not Attach Compendium, Do Not Delete/merge, [id number] 07/13/2023 10:29:28 07/14/20 23 07/14/2023 urina lysis , dipst ick Appearance Clear Not Available In-Offi ce Order Internal Use Only DO Not Attach Compendium DO Not Attach Compendium, Do Not Delete/merge, [id number] 07/13/2023 10:29:28 07/14/20 23 07/14/2023 urina lysis , dipst ick Color Dark Yellow Not Available In-Office Order Internal Use Only DO Not Attach Compendium DO Not Attach Compendium, Do Not Delete/merge, [id number] 07/13/2023 10:29:28 07/20/20 23 07/20/2023 urina lysis , dipst ick Leukocytes Negati ve Not Available In-Office Order Internal Use Only DO Not Attach Compendium DO Not Attach Compendium, Do Not Delete/merge, [facility] 07/20/2023 10:38:09 07/20/20 23 07/20/2023 urina lysis , dipst ick Nitrite negati ve Not Available In-Office Order Internal Use Only DO Not Attach Compendium DO Not Attach Compendium, Do Not Delete/merge, [facility] 07/20/2023 10:38:09 07/20/20 23 07/20/2023 urina lysis , dipst ick Urobilinogen 2 Not Available In-Of fice Order Internal Use Only DO Not Attach Compendium DO Not Attach Compendium, Do Not Delete/merge, [facility] 07/20/2023 10:38:09 07/20/20 23 07/20/2023 urina lysis , dipst ick Protein 30 Not Available In-Office Order Internal Use Only DO Not Attach Compendium DO Not Attach Compendium, Do Not Delete/merge, [facility] 07/20/2023 10:38:09 07/20/20 23 07/20/2023 urina lysis , dipst ick pH 5.5 Not Available In-Office Order Internal Use Only DO Not Attach Compendium DO Not Attach Compendium, Do Not Delete/merge, [facility] 07/20/2023 10:38:09 07/20/20 23 07/20/2023 urina lysis , dipst ick Blood Negati ve Not Available In-Office Order Internal Use Only DO Not Attach Compendium DO Not Attach Compendium, Do Not Delete/merge, 07/20/2023 10:38:09 07/20/2007/20/2023 urina lysis , dipst ick Specific [place] 1.030 Not Available In-Off ice Order Internal Use Only DO Not Attach Compendium DO Not Attach Compendium, Do Not Delete/merge, 07/20/2023 10:38:09 07/20/2007/20/2023 urina lysis , dipst ick Ketone Trace Not Available In-Office Order Internal Use Only DO Not Attach Compendium DO Not Attach Compendium, Do Not Delete/merge, 07/20/2023 10:38:09 07/20/2007/20/2023 urina lysis , dipst ick Bilirubin Small Not Available In-Offic e Order Internal Use Only DO Not Attach Compendium DO Not Attach Compendium, Do Not Delete/merge, 07/20/2023 10:38:09 07/20/2007/20/2023 urina lysis , dipst ick Glucose 100 Not Available In-Office Order Internal Use Only DO Not Attach Compendium DO Not Attach Compendium, Do Not Delete/merge, 07/20/2023 10:38:09 07/20/2007/20/2023 urina lysis , dipst ick Appearance Cloudy Not Available In-Offi ce Order Internal Use Only DO Not Attach Compendium DO Not Attach Compendium, Do Not Delete/merge, 07/20/2023 10:38:09 07/20/2007/20/2023 urina lysis , dipst ick Color Dark Yellow Not Available In-Office Order Internal Use Only DO Not Attach Compendium DO Not Attach Compendium, Do Not Delete/merge, 07/20/2023 10:38:09 07/26/2007/26/2023 urina lysis , dipst ick Leukocytes Negati ve Not Available In-Office Order Internal Use Only DO Not Attach Compendium DO Not Attach Compendium, Do Not Delete/merge, 07/26/2023 15:01:53 07/26/20 23 07/26/2023 urina lysis , dipst ick Nitrite negati ve Not Available In-Office Order Internal Use Only DO Not Attach Compendium DO Not Attach Compendium, Do Not Delete/merge, [id number] 07/26/2023 15:01:53 07/26/20 23 07/26/2023 urina lysis , dipst ick Urobilinogen 8 Not Available In-Of fice Order Internal Use Only DO Not Attach Compendium DO Not Attach Compendium, Do Not Delete/merge, [facility] 07/26/2023 15:01:53 07/26/20 23 07/26/2023 urina lysis , dipst ick Protein Trace Not Available In-Office Order Internal Use Only DO Not Attach Compendium DO Not Attach Compendium, Do Not Delete/merge, [id number] 07/26/2023 15:01:53 07/26/20 23 07/26/2023 urina lysis , dipst ick pH 7.0 Not Available In-Office Order Internal Use Only DO Not Attach Compendium DO Not Attach Compendium, Do Not Delete/merge, [id number] 07/26/2023 15:01:53 07/26/20 23 07/26/2023 urina lysis , dipst ick Blood Negati ve Not Available In-Office Order Internal Use Only DO Not Attach Compendium DO Not Attach Compendium, Do Not Delete/merge, [id number] 07/26/2023 15:01:53 07/26/20 23 07/26/2023 urina lysis , dipst ick Specific [place] 1.020 Not Available In-Off ice Order Internal Use Only DO Not Attach Compendium DO Not Attach Compendium, Do Not Delete/merge, [id number] 07/26/2023 15:01:53 07/26/20 23 07/26/2023 urina lysis , dipst ick Ketone Negati ve Not Available In-Office Order Internal Use Only DO Not Attach Compendium DO Not Attach Compendium, Do Not Delete/merge, [id number] 07/26/2023 15:01:53 07/26/20 23 07/26/2023 urina lysis , dipst ick Bilirubin Negati ve Not Available In-Office Order Internal Use Only DO Not Attach Compendium DO Not Attach Compendium, Do Not Delete/merge, [id number] 07/26/2023 15:01:53 07/26/20 23 07/26/2023 urina lysis , dipst ick Glucose Negati ve Not Available In-Office Order Internal Use Only DO Not Attach Compendium DO Not Attach Compendium, Do Not Delete/merge, 07/26/2023 15:01:53 07/26/20 23 07/26/2023 urina lysis , dipst ick Appearance Slight ly Cloudy Not Available In-Office Order Internal Use Only DO Not Attach Compendium DO Not Attach Compendium, Do Not Delete/merge, 07/26/2023 15:01:53 07/26/20 23 07/26/2023 urina lysis , dipst ick Color Dark Yellow Not Available In-Office Order Internal Use Only DO Not Attach Compendium DO Not Attach Compendium, Do Not Delete/merge, [id number] 07/26/2023 15:01:53 10/07/19 24 10/07/2023 CBC WITH DIFFE RENTI AL/PL ATELE T WBC 7.7 x10e3 /uL 3.4-[address] [facility] [address] [place], [address], 10/08/2023 06:22:19 10/07/19 24 10/07/2023 CBC WITH DIFFE RENTI AL/PL ATELE T RBC 4.54 x10e6 /uL 3.77-[address] [facility] [address] [place], [address], 10/08/2023 06:22:19 10/07/19 24 10/07/2023 CBC WITH DIFFE RENTI AL/PL ATELE T hemoglobin 10.5 g/dL 11.1-1 5.9 below low normal Not Available [facility] [address] [place], [address], 10/08/2023 06:22:19 10/07/19 24 10/07/2023 CBC WITH DIFFE RENTI AL/PL ATELE T hematocrit 34.5 % 34.0-[address] [facility] [address] [place], [address], 10/08/2023 06:22:19 10/07/19 24 10/07/2023 CBC WITH DIFFE RENTI AL/PL ATELE T MCV 76 fL 79-97 below low normal Not Available [facility] [address] [place], [address], 10/08/2023 06:22:19 10/07/19 24 10/07/2023 CBC WITH DIFFE RENTI AL/PL ATELE T MCH 23.1 pg 26.6-3 3.0 below low normal Not Available [facility] [address] [place], [address], 10/08/2023 06:22:19 10/07/19 24 10/07/2023 CBC WITH DIFFE RENTI AL/PL ATELE T MCHC 30.4 g/dL 31.5-3 5.7 below low normal Not Available [facility] [address] [place], [address], 10/08/2023 06:22:19 10/07/19 24 10/07/2023 CBC WITH DIFFE RENTI AL/PL ATELE T RDW 15.4 % 11.5-1 4.5 above high normal Not Available [facility] [address] [place], [address], 10/08/2023 06:22:19 10/07/19 24 10/07/2023 CBC WITH DIFFE RENTI AL/PL ATELE T platelets 328 x10e3 /uL 150-[address] [facility] [address] [place], [address], 10/08/2023 06:22:19 10/07/19 24 10/07/2023 CBC WITH DIFFE RENTI AL/PL ATELE T neutrophils 63 % notest b. Not Available [facility] [address] [place], [address], 10/08/2023 06:22:19 10/07/19 24 10/07/2023 CBC WITH DIFFE RENTI AL/PL ATELE T lymphs 25 % notest b. Not Available [facility] [address] [place], [address], 10/08/2023 06:22:19 10/07/19 24 10/07/2023 CBC WITH DIFFE RENTI AL/PL ATELE T monocytes 7 % notest b. Not Available [facility] [address] [place], [address], 10/08/2023 06:22:19 10/07/19 24 10/07/2023 CBC WITH DIFFE RENTI AL/PL ATELE T eos 5 % notest b. Not Available [facility] [address] [place], [address], 10/08/2023 06:22:19 10/07/19 24 10/07/2023 CBC WITH DIFFE RENTI AL/PL ATELE T basos 1 % notest b. Not Available [facility] [address] [place], [address], 10/08/2023 06:22:19 10/07/19 24 10/07/2023 CBC WITH DIFFE RENTI AL/PL ATELE T neutrophils (absolute) 4.8 x10e3 /uL 1.4-7. [address] [facility] [address] [place], [address], 10/08/2023 06:22:19 10/07/19 24 10/07/2023 CBC WITH DIFFE RENTI AL/PL ATELE T lymphs (absolute) 1.9 x10e3 /uL 0.7-3. [address] [facility] [address] [place], [address], 10/08/2023 06:22:19 10/07/19 24 10/07/2023 CBC WITH DIFFE RENTI AL/PL ATELE T monocytes(ab solute) 0.5 x10e3 /uL 0.1-0. [address] [facility] [address] [place], [address], 10/08/2023 06:22:19 10/07/19 24 10/07/2023 CBC WITH DIFFE RENTI AL/PL ATELE T eos (absolute) 0.4 x10e3 /uL 0.0-0. [address] [facility] [address] [place], [address], 10/08/2023 06:22:19 10/07/19 24 10/07/2023 CBC WITH DIFFE RENTI AL/PL ATELE T baso (absolute) 0.1 x10e3 /uL 0.0-0. [address] [facility] [address] [place], [address], 10/08/2023 06:22:19 10/07/19 24 10/07/2023 CBC WITH DIFFE RENTI AL/PL ATELE T immature granulocytes 0.4 % notest b. Not Available [facility] [address] [place], [address], 10/08/2023 06:22:19 10/07/19 24 10/07/2023 CBC WITH DIFFE RENTI AL/PL ATELE T immature grans (abs) 0.0 x10e3 /uL 0.0-0. [address] [facility] [address] [place], [address], 10/08/2023 06:22:19 10/07/19 24 10/07/2023 CBC WITH DIFFE RENTI AL/PL ATELE T NRBC 0 % 0-[address] [facility] [address] [place], [address], 10/08/2023 06:22:19 10/08/19 24 10/08/2023 edinb urgh postn atal depre ssion scale * Score 10/10 Not Available In-Office Order Internal Use Only DO Not Attach Compendium DO Not Attach Compendium, Do Not Delete/merge, [id number] 10/07/2023 16:02:27 08/03/20 23 07/13/2023 US, obste tric, 3rd trime ster No observ ation record ed. [email or web address] [address] [place], [address], 08/05/2023 09:57:03 Result Notes None recorded. Problems Name Problem SNOMED Code Status Onset Date Resolution Date Notes Provider Name and Address Organization Details Recorded Time Pregnanc y 74330699 Completed 202208/23/2023 Lesly Hebblethw aite null, [place] - [facility] 5 08:26:28 Maternal obesity complica ting pregnanc y, childbir th and the puerperi um, antepart um 52868580209 7 Completed 2022 Goal weight gain Lesly Hebblethw aite [place] [facility] 3 12:15:02 Routine antenata l care Completed 2022 Lesly Hebblethw aite [place] [facility] 3 12:15:02 Routine antenata l care Active 2022 Lesly Hebblethw aite [place] [facility] 3 12:15:02 Anemia of pregnanc y 63957494 Active 2022 Lesly Hebblethw aite [place] [facility] 3 12:15:02 Anemia 732416601 Active 2022 Balta Mo MD Attn: Yumiko webster,[address] [facility], [place], [address], [place] - [facility] 3 10:04:52 Anemia of pregnanc y 54036869 Completed 2022 Lesly Hebblethw aite [place] [facility] 3 12:15:02 Varicell a non-immu ne 325841909 Completed 2022 will PP varicell a Lesly Hebblethw aitkeshav null, [place] - [facility] 3 12:15:02 Increase d body mass index 65113962 Active Luann Ross MA null, [place] - [facility] 7 10:23:11 Tendinit is of wrist 595742606 Active Luann Ross MA null, [facility] 7 10:23:11 Foreign body in ear 98234242 Active Luann Ross MA null, [place] - [facility] 7 10:23:11 Problem Notes None recorded. Procedures Surgical History Date Name Laterality Status Provider Name and Address Organization Details Recorded Time 12/06/19 16 Removal of Foreign Body completed Park Katz MD Attn: Accounting,[address] [facility], [place], [address], [facility] 12/06/2015 13:39:14 09/06/19 10 Tonsillectomy completed [facility] 09/19/2015 14:53:17 Imaging Results None recorded. Procedure Notes None recorded. Medical Equipment None Reported. Allergies No known drug allergies Medications Name Sig Start Date Stop Date Status Note LastModified by Organization Details LastModified Time Miralax 17 gram oral powder packet Take 1 packet as needed by oral route for 90 days. 10/07 completed Not Available Not Available Not Available Vitamin B-6 25 mg tablet TAKE 1 TABLET BY MOUTH EVERY DAY 10/07 completed Pt. states that she didn't take any of this. Pt. didn't feel the need to take this bc she said it was given to her for nausea. Not Available Not Available Not Available azithromyc in 250 mg tablet 02/03 completed Not Available Not Available Not Available ketotifen 0.025 % (0.035 %) eye drops INSTILL 1 DROP INTO AFFECTED EYE(S) BY OPHTHALM IC ROUTE 2 TIMES PER DAY 01/13 completed Not Available Not Available Not Available Loestrin Fe 09/25 (28-Day) 1 mg-20 mcg (21)/75 mg (7) tablet Take 1 tablet every day by oral route for 28 days. 2023 active Not Available Not Available Not Avai lable hydrocodon e 5 mg-acetami nophen 325 mg tablet TAKE 1 TO 2 TABLETS BY MOUTH EVERY 8 HOURS NEEDED FOR MODERATE TO SEVERE PAIN active Not Available Not Available No t Available aspirin 81 mg tablet,del ayed release TAKE ONE TABLET BY MOUTH EVERY DAY 10/07 completed Not Available Not Available Not Available amoxicilli n 875 mg tablet 02/03 completed Not Available Not Available Not Available benzonatat e 100 mg capsule 02/03 completed Not Available Not Available Not Available tobramycin 0.3 % eye drops 02/03 completed Not Available Not Available Not Available docusate sodium 100 mg capsule 10/07 completed Not Available Not Available Not Available cefuroxime axetil 500 mg tablet 01/13 completed Not Available Not Available Not Available ondansetro n 4 mg disintegra ting tablet 01/13 completed Not Available Not Available Not Available amoxicilli n 875 mg-potassi um clavulanat e 125 mg tablet TAKE 1 TABLET BY MOUTH EVERY 12 HOURS FOR 7 DAYS 10/07 completed Not Available Not Available Not Available neomycin-p olymyxin-h ydrocort 3.5 mg-10,000 unit/mL-1 % ear drops,susp 02/03 completed Not Available Not Available Not Available Ferrocite 324 mg (106 mg iron) tablet TAKE 1 TABLET BY MOUTH DAILY 10/07 completed Not Available Not Available Not Available 28 mg iron-800 mcg tablet TAKE ONE TABLET BY MOUTH EVERY DAY 10/07 completed Not Available Not Available Not Available Vitals Date Recorded Body height Body mass index (BMI) Body weight Body temperature Respiratory rate Heart rate Systolic And Diastolic Provider Name and Address Organization Details Last Updated DateTime 4 154.94 cm 43.3 kg/m2 881413. 05 g 98.6 [degF] 18 /min 80 /min 103/70 mm[Hg] David Sanchez MA [place] [facility] 4 15:41:55 Date Recorded Body weight Provider Name an d Address Organization Details Last Updated DateTime 07/20/2023 930915.0330 g JADA GIMENEZ MD Attn: [address] [place], [address], [facility] 07/20/2023 11:22:50 Date Recorded Body height Body mass index (BMI) Body temperature Respiratory rate Heart rate Oxygen saturation Oxygen saturation in Arterial blood by Pulse oximetry Systolic And Diastolic Provider Name and Address Organization Details Last Updated DateTime 3 154.94 cm 45.3 kg/m2 97.8 [degF] 16 /min 96 /min 99 % 99 % 125/73 mm[Hg] Candida Ayala [facility] 3 10:36:35 Date Recorded Body weight Provider Name an d Address Organization Details Last Updated DateTime 07/26/2023 831936.8428 g JADA GIMENEZ MD Attn: [address] [place], [address], [facility] 07/26/2023 16:24:33 Date Recorded Body height Body temperature Heart rate Oxygen saturation Oxygen saturation in Arterial blood by Pulse oximetry Respiratory rate Body mass index (BMI) Systolic And Diastolic Provider Name and Address Organization Details Last Updated DateTime 3 154.94 cm 97.5 [degF] 89 /min 98 % 98 % 16 /min 45.3 kg/m2 109/72 mm[Hg] Candida Ayala [facility] 3 15:03:27 Date Recorded Body weight Provider Name an d Address Organization Details Last Updated DateTime 08/03/2023 478098.98708 g JADA GIMENEZ MD Attn: [address] [place], [address], [facility] 08/03/2023 09:55:05 Date Recorded Body height Body mass index (BMI) Body temperature Heart rate Respiratory rate Systolic And Diastolic Provider Name and Address Organization Details Last Updated DateTime 3 154.94 cm 45.2 kg/m2 98.3 [degF] 68 /min 18 /min 130/80 mm[Hg] Abi Pierre [facility] 3 09:28:56 Date Recorded Body height Body mass index (BMI) Body weight Body temperature Respiratory rate Oxygen saturation Oxygen saturation in Arterial blood by Pulse oximetry Heart rate Systolic And Diastolic Provider Name and Address Organization Details Last Updated DateTime 3 154.94 cm 41.8 kg/m2 126607. 96 g 97.2 [degF] 16 /min 99 % 99 % 67 /min 123/81 mm[Hg] Herlinda Quiros MA [place] - [facility] 3 12:01:39 Social History Question Answer Notes LastModified by Organizat ion Details LastModified Time Tobacco Smoking Status Never Smoker Park Katz MD Attn: [address] [place], [address], [place] [facility] 06/26/2015 10:38:08 Do You Have An Advance Directive? No Information not available 04/02/2023 How Much Tobacco Do You Chew? None Information not available 06/26/2015 In The 14 Days Before Symptom Onset, Have You Had Close Contact With A Laboratory-confi rmed COVID-19 While That Case Was Ill? No Information not available 04/02/2023 In The 14 Days Before Symptom Onset, Have You Had Close Contact With A Person Who Is Under Investigation For COVID-19 While That Person Was Ill? No Information not available 04/02/2023 Have You Been To An Area Known To Be High Risk For COVID-19? No Information not available 04/02/2023 Which Illicit Or Recreational Drugs Have You Used? No Information not available 06/26/2015 Have There Been Any Changes To Your Family Or Social Situation? No Information not available 06/26/2015 What Is Your Home Situation? Other Boyfriends Parents Information not available 04/02/2023 Parent Involvement? Both Parents Involved Information not available 04/02/2023 What Was The Date Of Your Most Recent Tobacco Screening? 10/07/2023 Information not available 10/07/2023 What Is Your Relationship Status? Other Engaged [email or web address] Information not available 05/18/2023 Are You Sexually Active? No Information not available 06/26/2015 Do You Have Smoke And Carbon Monoxide Detectors In Your Home? Yes Information not available 04/02/2023 Are You Passively Exposed To Smoke? Yes Information not available 04/02/2023 How Much Tobacco Do You Smoke? No Information not available 06/26/2015 What Types Of Sporting Activities Do You Participate In? Football [email or web address] Information not available 09/19/2015 Has Tobacco Cessation Counseling Been Provided? No Information not available 04/02/2023 On What Date Was Tobacco Cessation Counseling Provided? 10/07/2023 Information not available 10/07/2023 Year In School HS Grad Informatio n not available 04/02/2023 Sex: Female Functional Status Question Answer Note LastModified by Organizat ion Details LastModified Time Do you use any illicit or recreational drugs? No Information not available 04/02/2023 Do you or have you ever used any other forms of tobacco or nicotine? No Information not available 04/02/2023 What is your level of alcohol consumption? None Information not available 06/26/2015 Are you currently employed? 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 Family History Relationship Description Onset Age of this Age Resolved Age Notes LastModified by Organization Details LastModified Time Unspecified Relation Hypertensive disorder [email or web address] Not available 10:24:17 Notes:No new reported 3, 07/06/23 Medical History Condition Response Coronary Artery Disease N Other N Atrial Fibrillation N High Blood Pressure N Blood Diseases N Blood Clots N COPD N Depression N Developmental or Behavioral Disorders N Premature N Anxiety Disorder N Muscle, Joint, or Bone Problems N Vision or Eye Problems N Head Injury/Concussion N Acid Reflux (GERD) N Cancer N Stroke N ADHD N Bladder or Kidney Problems N High Cholesterol N Liver Disease N Headaches N Schizophrenia N Ear or Hearing Problems N Thyroid Problems N Kidney or Bladder Problems N GI Problems N Skin Problems N Eating Disorder N Anemia N Constipation N Heart Attack (OK) N Diabetes N Bedwetting N Seizures/Epilepsy N Heart Problems/Murmur N Asthma N Allergies N Substance Abuse N Hepatitis N Osteoporosis N Heart Failure N Chicken Pox N Autism Spectrum Disorder (ASD) N Gynecological History Statement/Question Response Date of LMP 10/26/2022 Menses Monthly Y Date of Last Pap Smear Current Control Method Age at First Child 14 LMP Obstetrics History GPAL:G 1 P 1 0 0 1 Type Value Full Term 1 Living 1 Total 1 Immunizations Vaccine Type Date Status Note Provider Nam e and Address Organization Details Recorded Time meningococcal B, OMV 7 completed Not Available [facility] 09/23/2019 02:33:32 meningococcal MCV4P 7 completed Not Available [facility] 09/23/2019 02:46:08 varicella 7 completed Luann Vandana, [place], [place] [facility] 02/03/2017 10:23:19 Hep B, unspecified formulation 0 completed Luann Vandana, [place] [facility] 02/03/2017 10:23:19 varicella 3 completed Luann Vandana[place] [facility] 02/03/2017 10:23:19 Hib, unspecified formulation 1 completed Luann Vandana[place] [facility] 02/03/2017 10:23:19 Pneumococcal Conjugate, unspecified formulation 1 completed Luann Vand[place] [facility] 02/03/2017 10:23:19 DTP 1 completed Luann Vand[place] [facility] 02/03/2017 10:23:19 influenza, unspecified formulation 0 completed Luann Vandana[place] [facility] 02/03/2017 10:23:19 MMR 3 completed Luann Vandana[place] [facility] 02/03/2017 10:23:19 DTP 1 completed Luann Vand[place] [facility] 02/03/2017 10:23:19 influenza, unspecified formulation 1 completed Lu[place] V[place] [facility] 02/03/2017 10:23:19 DTP 1 completed Luann Vand[place] [facility] 02/03/2017 10:23:19 polio, unspecified formulation 6 completed Luann V[place] [facility] 02/03/2017 10:23:19 MMR 6 completed Luann Vand[place] [facility] 02/03/2017 10:23:19 influenza, unspecified formulation 8 completed Lu[place] V[place] [facility] 02/03/2017 10:23:19 Hep B, unspecified formulation 1 completed Lu[place] V[place] [facility] 02/03/2017 10:23:19 polio, unspecified formulation 3 completed Lu[place] V[place] [facility] 02/03/2017 10:23:19 polio, unspecified formulation 1 completed Lu[place] V[place] [facility] 02/03/2017 10:23:19 Pneumococcal Conjugate, unspecified formulation 1 completed Lu[place] V[place] [facility] 02/03/2017 10:23:19 Hib, unspecified formulation 1 completed Luann V[place] [facility] 02/03/2017 10:23:19 polio, unspecified formulation 1 completed Lu[place] V[place] [facility] 02/03/2017 10:23:19 DTP 3 completed Luann Vand[place] [facility] 02/03/2017 10:23:19 Hep A, unspecified formulation 7 completed Lu[place] V[place] [facility] 02/03/2017 10:23:19 Hep B, unspecified formulation 1 completed Lu[place] V[place] [facility] 02/03/2017 10:23:19 HPV, unspecified formulation 2 completed Luann V[place] [facility] 02/03/2017 10:23:19 influenza, unspecified formulation 3 completed Lu[place] V[place] [facility] 02/03/2017 10:23:19 influenza, unspecified formulation 4 completed Luann V[place] [facility] 02/03/2017 10:23:19 Hep A, unspecified formulation 5 completed Lu[place] V[place] [facility] 02/03/2017 10:23:19 DTP 6 completed Lu[place] V[place] [facility] 02/03/2017 10:23:19 meningococcal ACWY, unspecified formulation 2 completed Luann V[place] [facility] 02/03/2017 10:23:19 influenza, unspecified formulation 2 completed Lu[place] V[place] [facility] 02/03/2017 10:23:19 Tdap 2 completed Lu[place] V[place] [facility] 02/03/2017 10:23:19 Hib, unspecified formulation 1 completed Lu[place] V[place] [facility] 02/03/2017 10:23:19 pneumococcal polysaccharide PPV23 1 completed Lu[place] V[place] [facility] 02/03/2017 10:23:19 Tdap 3 completed Elaine Beltran MD Attn: Accounting[address] [place], [address], [place] [facility] 04/30/2023 18:23:08 Influenza, split virus, quadrivalent, PF 5 completed Not Available [facility] 09/23/2019 02:32:12 HPV9 5 completed Not Available [facility] 09/23/2019 02:39:22 HPV9 6 completed Not Available [facility] 09/23/2019 02:32:03 Past Encounters Encounter ID Performer Location Encounter Start Date Encounter Closed Date Diagnosis/Indication Diagnosis SNOMED-CT Code Diagnosis ICD10 Code Diagnosis Note [id number] MD Justus Bianchi (Peds) [address] [place] [address] 06/26/2015 09:57:39 06/26/2015 17:10:05 Well child 244162559 Z00.129 Increased body mass index 93813952 Z68.54 Tendinitis of wrist 4238 16281 M77.8 Ibuprofen as needed. Avoid texting with L hand TCB in 2 weeks if w/o improvemen t [id number] MD Justus Bianchi (Peds) [address] [place] [address] 09/19/2015 14:45:40 09/19/2015 17:09:12 Well child 800702498 Z00.129 Increased body mass index 40395884 Z68.54 [id number] MD Justus Bianchi (Peds) [address] [place] [address] 12/06/2015 11:13:23 12/06/2015 14:01:47 Foreign body in ear 57826235 T16.2XXA Removal of FB done (see procedure note). Continue Ciprodex ear drops, and Amoxicilli n PO Mom was advised to not buy the Debrox as it is not needed [id number] MD Justus Bianchi (Peds) [address] [place] [address] 02/03/2017 09:53:03 02/03/2017 12:41:35 Well child 820845586 Z00.129 Overweight in childhood 923864177 Z68.54 Start eating healthy and exercise more. Limit screen time to 2 hours daily Elevated blood-pressure reading without diagnosis of hypertension 395503105 R03.0 Systolic and diastolic blood pressures are more than the 95% for height and age. Advised to monitor BP 3 days a week, different times of the day. To keep a record. TCB in 1 month. Possible referral to Nephrology if persistent ly elevated Allergic conjunctivitis 252274049 H10.12 [id number] MD Justus Ledesma [address] [facility] [place] [address] [place] [address] 01/13/2023 09:33:57 02/02/2023 14:47:27 Routine care 952506342 Z34.90 Anjum is a 22 y/o presenting @ 11.2 dated by estimated LMP 10/26/22; here for initial OB encounter. Preg complicate d by: maternal obesity complicati ng . She has no significan t concerns today and reports normal antepartum symptoms of . She denies vaginal bleeding, vaginal discharge, loss of fluid, or contractio ns. She has not had a visit to ED or Triage.Fir st dating ultrasound completed: 01/13/23Dat ing US consistent with LMP: 10/26/22EDD : 08/02/23 based on LMP/US - anticipato ry guidance provided- continue PNV- recommendi ng starting Aspirin 81 mg daily at 12 weeks.- follow-up pending results or in 4 weeksPMH: None complicate d by: Maternal obesity complicati ng . BMI: 41.6-Total weight gain goal: 11-20 pounds for BMI 30+BMI 40-50 Manage with MFM consult Depression screen: 1st trimester US: 01/13/23 Labs (CBC, blood type and screen, HIV, hepatitis B antigen, hepatitis C antibody, RPR, MMRV immunity antibodies , urinalysis with culture, gonorrhea, chlamydia, trichomona s, UDS): results pending. Last Pap: , Result: Abnormal Lab: Risk for tuberculos is: Discussed genetic testing (Quad screen, NIPT, CF, SMA): Flu vaccine: Covid vaccine: [facility] referral: done 01/13/23Hea lthy Start referral:[facility]: Follow-up: 4 weeks for routine OB Situationa l Awareness: [place]: negative PHQ9: negative GAD7: negative ACES: 0 Resilience : high SDOH: Desired delivering facility: [facility] Willing to participat e in group visits: no Planning to breastfeed : no Circumcisi on yes Epidural yes Post-partu m contracept ion Open to vaccinatio n: Tdap: no COVID: no Flu: no Home visits ok: no Maternal o besity complicating , childbirth and the puerperium, antepartum 4866336912 07 O99.210 Hx of prediabete s in 2017 with A1c of [id number] MD Justus Ledesma 14 [address] [facility] [address] [place] [address] 02/10/2023 09:20:55 02/15/2023 16:57:15 Routine care [id number] Z34.90 Anjum is a 22 y/o presenting @ 15.1 dated by estimated LMP 10/26/22; here for initial OB encounter. Preg complicate d by: maternal obesity complicati ng . She has no significan t concerns today and reports normal antepartum symptoms of . She denies vaginal bleeding, vaginal discharge, loss of fluid, or contractio ns. She has not had a visit to ED or Triage.Fir st dating ultrasound completed: 01/13/23Dat ing US consistent with LMP: 10/26/22EDD : 08/02/23 based on LMP/US - anticipato ry guidance provided- continue PNV- continue Aspirin 81 mg daily at 12 weeks.- continue Fe fumarate- continue miralax daily or as needed for constipati on- follow-up pending results or in 4 weeksPMH: None complicate d by: Maternal obesity complicati ng and microcytic anemia. BMI: 41.6-Total weight gain goal: 11-20 pounds for BMI 30+BMI 40-50 Manage with MFM consult INITIAL LABS Date: lood Type: BRh Type: positiveAn tibody Screen: negCBC: 10.8/9.4/3 1.3/293VDR L/RPR: non-reacti veUrine Culture: normalHBsA g: negativeHe pC: non-reacti veHIV: Non-reacti veRubella: immuneVari lorenzo: non-Immune CF:negSS:U DS:neg Dating US: Date2022LMP: 10/26/2022 GA 11.2 JOSR: 08/03/2023 Patient is sure of dating.DUS : Date 01/13/23 AUA: JOSR: 08/03/2023 Discrepanc y <5 daysEDD: 08/03/2023 Based on LMP supported by US Pap:Vagina l Cultures: Yeast: neg;BV: negGC:neg; Chlamydia: neg;Trich: neg Sequential /QUAD/Mate rniT21:neg ; consistent with female MFM referral: done 01/13/23Hea lthy Start referral:[facility]: Follow-up: 4 weeks for routine OB Situationa l Awareness: [place]: negativePH Q9: negative GAD7: negativeAC ES: 0Resilienc e: highSDOH:D esired delivering facility: [facility] lling to participat e in group visits: noPlanning to breastfeed : noCircumci rama yesEpidura l yesPost-pa rtum contracept ionOpen to vaccinatio n:Tdap: noCOVID: noFlu: noHome visits ok: no Maternal o besity complicating , childbirth and the puerperium, antepartum 4701705900 07 O99.210 Hx of prediabete s in 2017 with A1c of 5.7 Anemia of 2734 2003 O99.019 Pt has a microcytic anemia present. Seems to be going on for many years. Never worked up. Nausea 609005711 R11.0 Has been having nausea w/o vomiting. Is not taking vit B6, would benefit to starting this. Discussed w/ pt and she agrees. Anemia 211414335 D64.9 Pt agrees w/ doing a work up for her anemia. Mother also has anemia for which she takes FeS. Her heritage is [place] and . [id number] BUCKY ROSA MD [place] [address] [facility] [address] [place] [address] 03/12/2023 10:51:44 04/02/2023 14:42:15 Routine care 051043937 Z34.90 Capay is a 22 y/o presenting @ 19.4 dated by LMP/US. JOSR: 08/02/23 her for NING encounter. Preg complicate d by: maternal obesity complicati ng . She has no significan t concerns today and reports normal antepartum symptoms of . Patient has yet to see MFM because she wanted more time to think about it. She denies vaginal bleeding, vaginal discharge, loss of fluid, or contractio ns. She has not had a visit to ED or Triage. - anticipato ry guidance provided- continue PNV- continue Aspirin 81 mg daily.- continue Fe fumarate- continue miralax daily or as needed for constipati on- 1 hr glucose test, AFP and Anatomy US ordered- follow-up pending results or in 4 weeksPMH: None complicate d by:Materna l obesity complicati ng and microcytic anemia. BMI: 41.6-Total weight gain goal: 11-20 pounds for BMI 30+BMI 40-50 Manage with MFM consult First dating ultrasound completed: 01/13/23Dat ing US consistent with LMP: 10/26/22EDD : 08/02/23 based on LMP/US INITIAL LABS Date: lood Type: BRh Type: positiveAn tibody Screen: negCBC: 10.8/9.4/3 1.3/293VDR L/RPR: non-reacti veUrine Culture: normalHBsA g: negativeHe pC: non-reacti veHIV: Non-reacti veRubella: immuneVari lorenzo: non-Immune CF:negSS:U DS:neg Dating US: Date2022LMP: 10/26/2022 GA 11.2 JOSR: 08/03/2023 Patient is sure of dating.DUS : Date 01/13/23 AUA: JOSR: 08/03/2023 Discrepanc y <5 daysEDD: 08/03/2023 Based on LMP supported by US Pap: ____Vagina l Cultures: Yeast: neg; BV: negGC:neg; Chlamydia: neg;Trich: neg Sequential /QUAD/Mate rniT21:neg ; consistent with female MFM referral: done 01/13/23Hea lthy Start referral:[facility]: Follow-up: 4 weeks for routine OB Situationa l Awareness: [place]: negativePH Q9: negative GAD7: negativeAC ES: 0Resilienc e: highSDOH:D esired delivering facility: [facility] lling to participat e in group visits: noPlanning to breastfeed : noCircumci rama yesEpidura l yesPost-pa rtum contracept ion ____Open to vaccinatio n:Tdap: noCOVID: noFlu: noHome visits ok: no [id number] MD Justus Sims [address] [facility] [place] [address] 04/02/2023 16:14:48 04/08/2023 12:54:26 Routine care [id number] Z34.90 Anjum is a 22 y/o presenting @ 22+4 dated by LMP/US. JOSR: 08/02/23 her for NING encounter. Preg complicate d by: maternal obesity complicati ng . She has no significan t concerns today and reports normal antepartum symptoms of . Patient has yet to see MFM. Patient reports receiving a call to schedule her anatomy US, which she has not done. Patient reports visiting urgent care for dysuria and was told to have UTI. Patient was prescribed keflex, which she did not complete antibiotic course. She denies vaginal bleeding, dysuria, vaginal discharge, loss of fluid, or contractio ns. She has not had a visit to ED or Triage. - anticipato ry guidance provided- continue PNV- continue Aspirin 81 mg daily.- continue Fe fumarate- continue miralax daily or as needed for constipati on- Anatomy US ordered and pending- follow-up in 4 weeks complicate d by:Materna l obesity complicati ng and microcytic anemia. BMI: 41.6-Total weight gain goal: 11-20 pounds for BMI 30+BMI 40-50 Manage with MFM consult First dating ultrasound completed: 01/13/23Dat ing US consistent with LMP: 10/26/22EDD : 08/02/23 based on LMP/US INITIAL LABS Date: lood Type: BRh Type: positiveAn tibody Screen: negCBC: 10.8/9.4/3 1.3/293VDR L/RPR: non-reacti veUrine Culture: normalHBsA g: negativeHe pC: non-reacti veHIV: Non-reacti veRubella: immuneVari lorenzo: non-Immune CF:negSS:U DS:neg Dating US: Date2022LMP: 10/26/2022 GA 11.2 JOSR: 08/03/2023 Patient is sure of dating.DUS : Date 01/13/23 AUA: JOSR: 08/03/2023 Discrepanc y <5 daysEDD: 08/03/2023 Based on LMP supported by US Pap: ____Vagina l Cultures: Yeast: neg; BV: negGC:neg; Chlamydia: neg;Trich: neg Sequential /QUAD/Mate rniT21:neg ; consistent with female MFM referral: done 01/13/23Hea lthy Start referral:[facility]: Follow-up: 4 weeks for routine OB Situationa l Awareness: [place]: negativePH Q9: negative GAD7: negativeAC ES: 0Resilienc e: highSDOH:D esired delivering facility: [facility] lling to participat e in group visits: noPlanning to breastfeed : noCircumci rama yesEpidura l yesPost-pa rtum contracept ion - Mirena IUD plus Depot shotOpen to vaccinatio n:Tdap: noCOVID: noFlu: noHome visits ok: no [id number] Elaine Beltran MD [place] [address] [facility] [address] [place] [address] 04/29/2023 15:43:53 05/01/2023 10:33:01 Routine care [id number] Z34.90 Anjum is a 22 y/o presenting @ +3 dated by LMP/US. JOSR: 08/02/23 her for NING encounter. Preg complicate d by: maternal obesity complicati ng . She has no significan t concerns today and reports normal antepartum symptoms of . Patient reports her anatomy US scheduled for May 26. She denies vaginal bleeding, dysuria, vaginal discharge, loss of fluid, or contractio ns. She has not had a visit to ED or Triage. - anticipato ry guidance provided- continue PNV- GTT 1 hr already done and passed- Tdap today- continue Aspirin 81 mg daily.- continue Fe fumarate- continue miralax daily or as needed for constipati on- Anatomy US scheduled may 26- follow-up in 4 weeks complicate d by:Materna l obesity complicati ng and microcytic anemia. BMI: 41.6-Total weight gain goal: 11-20 pounds for BMI 30+BMI 40-50 Manage with MFM consult - patient not interested in following up with MFM. First dating ultrasound completed: 01/13/23Dat ing US consistent with LMP: 10/26/22EDD : 08/02/23 based on LMP/US INITIAL LABS Date: lood Type: BRh Type: positiveAn tibody Screen: negCBC: 10.8/9.4/3 1.3/293VDR L/RPR: non-reacti veUrine Culture: normalHBsA g: negativeHe pC: non-reacti veHIV: Non-reacti veRubella: immuneVari lorenzo: non-Immune CF:negSS:U DS:neg Dating US: Date2022LMP: 10/26/2022 GA 11.2 JOSR: 08/03/2023 Patient is sure of dating.DUS : Date 01/13/23 AUA: JOSR: 08/03/2023 Discrepanc y <5 daysEDD: 08/03/2023 Based on LMP supported by US Pap: ____Vagina l Cultures: Yeast: neg; BV: negGC:neg; Chlamydia: neg;Trich: neg Sequential /QUAD/Mate rniT21:neg ; consistent with female MFM referral: done 01/13/23[facility]a [facility]thy [facility] for routine OB Situationa l Awareness: [place]: negativePH Q9: negative GAD7: negativeAC ES: 0Resilienc e: highSDOH:D esired delivering facility: [facility] lling to participat e in group visits: noPlanning to breastfeed : noCircumci rama yesEpidura l yesPost-pa rtum contracept ion - Mirena IUD plus Depot shotOpen to vaccinatio n:Tdap: noCOVID: noFlu: noHome visits ok: no [id number] Kelsi Reed MD [place] [address] [facility] [address] [place] [address] 05/18/2023 09:34:12 06/08/2023 12:58:16 Routine care [id number] Z34.90 Anjmu is a 22 y/o presenting @ 29+1 dated by LMP/US. JOSR: 08/02/23 her for NING encounter. Preg complicate d by: maternal obesity complicati ng . She has no significan t concerns today and reports normal antepartum symptoms of . Patient reports going to the ED on 05/04 after noticing a bleeding with wiping after using the restroom. Patient reports panicking and reporting to the ED. She said they did cervical check during that visit and she was assured that she was not dilating and discharged home. She denies experienci ng similar symptoms since that day.Xavier reyes reports her anatomy US scheduled for May 26. She denies vaginal bleeding, dysuria, vaginal discharge, loss of fluid, or contractio ns. FHR reassuring . - anticipato ry guidance provided- continue PNV- continue Aspirin 81 mg daily.- continue Fe fumarate- continue miralax daily or as needed for constipati on- Anatomy US scheduled may 26- follow-up in 4 weeks complicate d by:Materna l obesity complicati ng and microcytic anemia. BMI: 41.6, 42.6-Total weight gain goal: 11-20 pounds for BMI 30+BMI 40-50 Manage with MFM consult - patient not interested in following up with MFM. First dating ultrasound completed: 01/13/23Dat ing US consistent with LMP: 10/26/22EDD : 08/02/23 based on LMP/US INITIAL LABS Date: lood Type: BRh Type: positiveAn tibody Screen: negCBC: 10.8/9.4/3 1.3/293VDR L/RPR: non-reacti veUrine Culture: normalHBsA g: negativeHe pC: non-reacti veHIV: Non-reacti veRubella: immuneVari lorenzo: non-Immune CF:negSS:U DS:neg Dating US: Date2022LMP: 10/26/2022 GA 11.2 JOSR: 08/03/2023 Patient is sure of dating.DUS : Date 01/13/23 AUA: JOSR: 08/03/2023 Discrepanc y <5 daysEDD: 08/03/2023 Based on LMP supported by US Pap: ____Vagina l Cultures: Yeast: neg; BV: negGC:neg; Chlamydia: neg;Trich: neg Sequential /QUAD/Mate rniT21:neg ; consistent with female MFM referral: done 01/13/23Hea lthy Start referral:[facility]: Follow-up: 4 weeks for routine OB Situationa l Awareness: [place]: negativePH Q9: negative GAD7: negativeAC ES: 0Resilienc e: highSDOH:D esired delivering facility: [facility] lling to participat e in group visits: noPlanning to breastfeed : noCircumci rama yesEpidura l yesPost-pa rtum contracept ion - Mirena IUD plus Depot shotOpen to vaccinatio n:Tdap: yes done 04/29COVID : noFlu: noHome visits ok: no [id number] BUKCY ROSA MD [place] [address] [facility] [address] [place] [address] 07/06/2023 09:33:01 07/12/2023 09:03:36 Routine care [id number] Z34.90 Anjum is a 22 y/o presenting @ 36.1 dated by LMP/US. JOSR: 08/02/23 her for NING encounter. Preg complicate d by: maternal obesity complicati ng . She has no significan t concerns today and reports normal antepartum symptoms of . She denies vaginal bleeding, dysuria, vaginal discharge, loss of fluid, or contractio ns. FHR reassuring . - anticipato ry guidance provided- continue PNV- Labs pending (cbc, GBS, tric/GN/Ch lamydia)- continue Aspirin 81 mg daily.- continue Fe fumarate- continue miralax daily or as needed for constipati on- follow-up in 1 weeks complicate d by:Materna l obesity complicati ng and microcytic anemia. BMI: 41.6, 42.6, 44.1-Total weight gain goal: 11-20 pounds for BMI 30+BMI 40-50 Manage with MFM consult - patient not interested in following up with MFM. First dating ultrasound completed: 01/13/23Dat ing US consistent with LMP: 10/26/22EDD : 08/02/23 based on LMP/US Anatomy US - 0n 05/26/23 - single live intrauteri ne gestation estimated at 31 weeks and 3 days by this ultrasound . EDC July 25, 2023. Anterior placenta. estimated weight 3 lb 13 oz( 1720 g). spine and intracrani al anatomy not visualized due to maternal habitus. INITIAL LABS Date: lood Type: BRh Type: positiveAn tibody Screen: negCBC: 10.8/9.4/3 1.3/293VDR L/RPR: non-reacti veUrine Culture: normalHBsA g: negativeHe pC: non-reacti veHIV: Non-reacti veRubella: immuneVari lorenzo: non-Immune CF:negSS:U DS:neg 32 - 36 weeks- Hgb 10.6- HCT 33.0- MCV 86- GBS pending- Tric/Chlam ydia/Gonor sam pending Dating US: Date2022LMP: 10/26/2022 GA 11.2 JOSR: 08/03/2023 Patient is sure of dating.DUS : Date 01/13/23 AUA: JOSR: 08/03/2023 Discrepanc y <5 daysEDD: 08/03/2023 Based on LMP supported by US Pap: ____Vagina l Cultures: Yeast: neg; BV: negGC:neg; Chlamydia: neg;Trich: neg Sequential /QUAD/Mate rniT21:neg ; consistent with female MFM referral: done 01/13/23Hea lthy Start referral:[facility]: Follow-up: 1 weeks for routine OB Situationa l Awareness: [place]: negativePH Q9: negative GAD7: negativeAC ES: 0Resilienc e: highSDOH:D esired delivering facility: [facility] lling to participat e in group visits: noPlanning to breastfeed : noCircumci rama yesEpidura l yesPost-pa rtum contracept ion - Mirena IUD plus Depot shotOpen to vaccinatio n:Tdap: yes done 04/29COVID : noFlu: noHome visits ok: no [id number] Kelsi Reed MD [place] [address] IM [address] [facility] [address] [place] [address] 07/13/2023 10:19:25 07/27/2023 10:49:44 Routine care [id number] Z34.90 Anjum is a 22 y/o presenting @ 37.1 dated by LMP/US. JOSR: 08/02/23 her for NING encounter. Preg complicate d by: maternal obesity complicati ng . She has no significan t concerns today and reports normal antepartum symptoms of . She reports going to the ED due to contractio n on Jul 11 and was told that it was jaquelin gamez contractio n and sent home. She denies vaginal bleeding, dysuria, vaginal discharge, loss of fluid, or contractio ns. FHR reassuring . - anticipato ry guidance provided- continue PNV- continue Aspirin 81 mg daily.- continue Fe fumarate- ultrasound scheduled for 10:30am today- continue miralax daily or as needed for constipati on- follow-up in 1 weeks complicate d by:Materna l obesity complicati ng and microcytic anemia. BMI: 41.6, 42.6, 44.1, 44.4-Total weight gain goal: 11-20 pounds for BMI 30+BMI 40-50 Manage with MFM consult - patient not interested in following up with MFM. First dating ultrasound completed: 01/13/23Dat ing US consistent with LMP: 10/26/22EDD : 08/02/23 based on LMP/US Anatomy US - 0n 05/26/23 - single live intrauteri ne gestation estimated at 31 weeks and 3 days by this ultrasound . EDC July 25, 2023. Anterior placenta. estimated weight 3 lb 13 oz( 1720 g). spine and intracrani al anatomy not visualized due to maternal habitus. INITIAL LABS Date: lood Type: BRh Type: positiveAn tibody Screen: negCBC: 10.8/9.4/3 1.3/293VDR L/RPR: non-reacti veUrine Culture: normalHBsA g: negativeHe pC: non-reacti veHIV: Non-reacti veRubella: immuneVari lorenzo: non-Immune CF:negSS:U DS:neg 32 - 36 weeks - 07/06- Hgb 10.6- HCT 33.0- MCV 86- GBS Postive- Tric/Chlam ydia/Gonor sam Negative Dating US: Date2022LMP: 10/26/2022 GA 11.2 JOSR: 08/03/2023 Patient is sure of dating.DUS : Date 01/13/23 AUA: JOSR: 08/03/2023 Discrepanc y <5 daysEDD: 08/03/2023 Based on LMP supported by US Pap: ____Vagina l Cultures: Yeast: neg; BV: negGC:neg; Chlamydia: neg;Trich: neg Sequential /QUAD/Mate rniT21:neg ; consistent with female MFM referral: done 01/13/23Hea lthy Start referral:[facility] Health: Krishan narayanan Awareness: [place]: negativePH Q9: negative GAD7: negativeAC ES: 0Resilienc e: highSDOH:D esired delivering facility: [facility] lling to participat e in group visits: noPlanning to breastfeed : noCircumci rama yesEpidura l yesPost-pa rtum contracept ion - Mirena IUD plus Depot shotOpen to vaccinatio n:Tdap: yes done 04/29COVID : noFlu: noHome visits ok: no [id number] eKlsi Reed MD [place] [address] [facility] [address] [place] [address] 07/20/2023 10:29:03 07/27/2023 11:27:10 Routine care [id number] Z34.90 Anjum is a 22 y/o presenting @ 38.1 dated by LMP/US. JOSR: 08/02/23 her for NING encounter. Preg complicate d by: maternal obesity complicati ng . She has no significan t concerns today and reports normal antepartum symptoms of . She denies vaginal bleeding, dysuria, vaginal discharge, loss of fluid, or contractio ns. FHR reassuring . - anticipato ry guidance provided- continue PNV- continue Aspirin 81 mg daily.- continue Fe fumarate- continue miralax daily or as needed for constipati on- follow-up in 1 weeks complicate d by:Materna l obesity complicati ng and microcytic anemia. BMI: 41.6, 42.6, 44.1, 44.4-Total weight gain goal: 11-20 pounds for BMI 30+BMI 40-50 Manage with MFM consult - patient not interested in following up with MFM. First dating ultrasound completed: 01/13/23Dat ing US consistent with LMP: 10/26/22EDD : 08/02/23 based on LMP/US Anatomy US - 0n 05/26/23 - single live intrauteri ne gestation estimated at 31 weeks and 3 days by this ultrasound . EDC July 25, 2023. Anterior placenta. estimated weight 3 lb 13 oz( 1720 g). spine and intracrani al anatomy not visualized due to maternal habitus. INITIAL LABS Date: lood Type: BRh Type: positiveAn tibody Screen: negCBC: 10.8/9.4/3 1.3/293VDR L/RPR: non-reacti veUrine Culture: normalHBsA g: negativeHe pC: non-reacti veHIV: Non-reacti veRubella: immuneVari lorenzo: non-Immune CF:negSS:U DS:neg 32 - 36 weeks - 07/06- Hgb 10.6- HCT 33.0- MCV 86- GBS Postive- Tric/Chlam ydia/Gonor sam Negative Dating US: Date2022LMP: 10/26/2022 GA 11.2 JOSR: 08/03/2023 Patient is sure of dating.DUS : Date 01/13/23 AUA: JOSR: 08/03/2023 Discrepanc y <5 daysEDD: 08/03/2023 Based on LMP supported by US Pap: ____Vagina l Cultures: Yeast: neg; BV: negGC:neg; Chlamydia: neg;Trich: neg Sequential /QUAD/Mate rniT21:neg ; consistent with female MFM referral: done 01/13/23Hea lthy Start referral:[facility] Health: Situationa l Awareness: [place]: negativePH Q9: negative GAD7: negativeAC ES: 0Resilienc e: highSDOH:D esired delivering facility: [facility] lling to participat e in group visits: noPlanning to breastfeed : noCircumci rama yesEpidura l yesPost-pa rtum contracept ion - Mirena IUD plus Depot shotOpen to vaccinatio n:Tdap: yes done 04/29COVID : noFlu: noHome visits ok: no [id number] MD [facility] [place] [address] [facility] [address] [place] [address] 07/26/2023 14:45:27 07/30/2023 10:53:57 Routine care [id number] Z34.90 Anjum is a 22 y/o presenting @ 39 dated by LMP/US. JOSR: 08/02/23 her for NNIG encounter. Preg complicate d by: maternal obesity complicati ng . She has no significan t concerns today and reports normal antepartum symptoms of . She denies vaginal bleeding, dysuria, vaginal discharge, loss of fluid, or contractio ns. FHR reassuring . /-3 - anticipato ry guidance provided- continue PNV- continue Aspirin 81 mg daily.- continue Fe fumarate- continue miralax daily or as needed for constipati on- follow-up in 1 weeks complicate d by:Materna l obesity complicati ng and microcytic anemia. BMI: 41.6, 42.6, 44.1, 44.4-Total weight gain goal: 11-20 pounds for BMI 30+BMI 40-50 Manage with MFM consult - patient not interested in following up with MFM. First dating ultrasound completed: 01/13/23Dat ing US consistent with LMP: 10/26/22EDD : 08/02/23 based on LMP/US Anatomy US - 0n 05/26/23 - single live intrauteri ne gestation estimated at 31 weeks and 3 days by this ultrasound . EDC July 25, 2023. Anterior placenta. estimated weight 3 lb 13 oz( 1720 g). spine and intracrani al anatomy not visualized due to maternal habitus. INITIAL LABS Date: lood Type: BRh Type: positiveAn tibody Screen: negCBC: 10.8/9.4/3 1.3/293VDR L/RPR: non-reacti veUrine Culture: normalHBsA g: negativeHe pC: non-reacti veHIV: Non-reacti veRubella: immuneVari lorenzo: non-Immune CF:negSS:U DS:neg 32 - 36 weeks - 07/06- Hgb 10.6- HCT 33.0- MCV 86- GBS Postive- Tric/Chlam ydia/Gonor sam Negative Dating US: Date2022LMP: 10/26/2022 GA 11.2 JOSR: 08/03/2023 Patient is sure of dating.DUS : Date 01/13/23 AUA: JOSR: 08/03/2023 Discrepanc y <5 daysEDD: 08/03/2023 Based on LMP supported by US Pap: ____Vagina l Cultures: Yeast: neg; BV: negGC:neg; Chlamydia: neg;Trich: neg Sequential /QUAD/Mate rniT21:neg ; consistent with female MFM referral: done 01/13/23Hea lthy Start [facility] [place]: negativePH Q9: negative GAD7: negativeAC ES: 0Resilienc e: highSDOH:D esired delivering facility: [facility] lling to participat e in group visits: noPlanning to breastfeed : noCircumci rama yesEpidura l yesPost-pa rtum contracept ion - Mirena IUD plus Depot shotOpen to vaccinatio n:Tdap: yes done 04/29COVID : noFlu: noHome visits ok: no [id number] Kelsi Reed MD [place] [address] IM [address] [facility] [address] [place] [address] 08/03/2023 09:19:54 08/18/2023 12:45:23 Routine care [id number] Z34.90 Anjum is a 22 y/o presenting @ 40.1 dated by LMP/US. JOSR: 08/02/23 her for NING encounter. Preg complicate d by: maternal obesity complicati ng . She has no significan t concerns today and reports normal antepartum symptoms of . She denies vaginal bleeding, dysuria, vaginal discharge, loss of fluid, or contractio ns. FHR reassuring . /3 - anticipato ry guidance provided- continue PNV- continue Aspirin 81 mg daily.- continue Fe fumarate- continue miralax daily or as needed for constipati on- Will schedule for induction complicate d by:Materna l obesity complicati ng and microcytic anemia. BMI: 41.6, 42.6, 44.1, 44.4-Total weight gain goal: 11-20 pounds for BMI 30+BMI 40-50 Manage with MFM consult - patient not interested in following up with MFM. First dating ultrasound completed: 01/13/23Dat ing US consistent with LMP: 10/26/22EDD : 08/02/23 based on LMP/US Anatomy US - 0n 05/26/23 - single live intrauteri ne gestation estimated at 31 weeks and 3 days by this ultrasound . EDC July 25, 2023. Anterior placenta. estimated weight 3 lb 13 oz( 1720 g). spine and intracrani al anatomy not visualized due to maternal habitus. INITIAL LABS Date: lood Type: BRh Type: positiveAn tibody Screen: negCBC: 10.8/9.4/3 1.3/293VDR L/RPR: non-reacti veUrine Culture: normalHBsA g: negativeHe pC: non-reacti veHIV: Non-reacti veRubella: immuneVari lorenzo: non-Immune CF:negSS:U DS:neg 32 - 36 weeks - 07/06- Hgb 10.6- HCT 33.0- MCV 86- GBS Postive- Tric/Chlam ydia/Gonor sam Negative Dating US: Date2022LMP: 10/26/2022 GA 11.2 JOSR: 08/03/2023 Patient is sure of dating.DUS : Date 01/13/23 AUA: JOSR: 08/03/2023 Discrepanc y <5 daysEDD: 08/03/2023 Based on LMP supported by US Pap: ____Vagina l Cultures: Yeast: neg; BV: negGC:neg; Chlamydia: neg;Trich: neg Sequential /QUAD/Mate rniT21:neg ; consistent with female MFM referral: done 01/13/23Hea lthy Start referral:[facility]: Situationa l Awareness: [place]: negativePH Q9: negative GAD7: negativeAC ES: 0Resilienc e: highSDOH:D [facility] to participat e in group visits: noPlanning to breastfeed : noCircumci rama yesEpidura l yesPost-pa rtum contracept ion - Mirena IUD plus Depot shotOpen to vaccinatio n:Tdap: yes done 04/29COVID : noFlu: noHome visits ok: no [id number] Kelsi Reed MD [place] [address] IM [address] [facility] [address] [place] [address] 08/24/2023 11:36:47 09/02/2023 11:07:27 care [id number] Z39.2 22 yo here today for 2 wks with no concerns.- EPDS score 0 - negative for blues- discussed contracept ion but patient unsure for now- advise patient to abstain from sexual activity until 6 weeks - follow up in 6-8 weeks for [id number] MD [facility] [address] [address] IM [address] [facility] [address] [place] [address] 10/07/2023 15:32:37 10/22/2023 08:56:53 Morbid obesity [id number] E66.01 Patient educated on healthy eating habits and exercise at least 30 mins per day. A diet comprised of four to five servings of fruit, four to five servings of vegetables , and two to three servings of low-fat dairy per day, with <25 percent of daily caloric intake from fat. Contraception care [id number] Z30.40 Discussed OCP, depo, nexplanon, ring, IUD, patch. Risks of hormonal control reviewed, including but not limited to thrombosis , embolism, pulmonary embolism, stroke, disability , sexual dysfunctio n & . Patient understand s these risk are increased with smoking. Patient understand s that these risks may be increased when using the patch (Ortho-Evr a) or the vaginal ring (Nuva-Ring ) when compared to oral control pills. Risks of bone loss with Depo Provera also reviewed. All questions answered. Pt understand s & accepts risks. Instructio ns/warning signs given. Patient agreeable to Loestrin. care [id number] Z39.2 22 yo here today for 6 wks with no concerns.- EPDS score 0 - negative for blues- discussed contracept ion and patient wants OCPs- follow up as needed Health Concerns Section Related Observation LastModified by Organization Detai ls LastModified Time None Recorded Concern Status LastModified by Organization Details LastModified Time None Recorded Advance Directives Directive N: Payers Insurance Date Sequence Insurance Name Policy Number Policy Rosales Covered Member ID Rosales Member ID Guarantor Name 07/12/2023 1 *SELF PAY* Sa rah Thoreau 07/26/2024 1 [facility] (MEDICAID HMO) [id number] Capay Opal [id number] Yen Díaz 03/11/2023 1 [facility] - DOS PRIOR TO 2021 (MEDICAID REPLACEMENT - HMO) Anjum Opal [id number] Yen Díaz 03/11/2023 1 [facility] (MEDICAID HMO) Capay Opal [id number] Yen Díaz 08/10/2023 1 [place] Capay Opal [id number] Yen Díaz 07/06/2023 SLIDING FEE SCHEDULE - DISCOUNT Yen Díaz 05/18/2023 SLIDING FEE SCHEDULE - DISCOUNT eYn Díaz 05/18/2023 1 [facility] (MEDICAID HMO) [id number] Capay Opal [id number] Yen Díaz 07/06/2023 SLIDING FEE SCHEDULE - DISCOUNT Yen Díaz Notes Date Note Type Note Provider Name and Address Organization Details Recorded Time 07/20/2023 text/html Anjum is a 22 y /o presenting @ 38.1 dated by LMP/US. JOSR: 08/02/23 her for NING encounter. Preg complicated by: maternal obesity complicating . She has no significant concerns today and reports normal antepartum symptoms of . She denies vaginal bleeding, dysuria, vaginal discharge, loss of fluid, or contractions. FHR reassuring. Kelsi Reed MD Attn: [address]ing[address] [place], [address], [facility] 07/21/2023 09:47:27 07/26/2023 text/html Anjum is a 22 y /o presenting @ 39 dated by LMP/US. JOSR: 08/02/23 her for NING encounter. Preg complicated by: maternal obesity complicating . She has no significant concerns today and reports normal antepartum symptoms of . She denies vaginal bleeding, dysuria, vaginal discharge, loss of fluid, or contractions. FHR reassuring. Gio Ivan MD Attn: [address] [place], [address], [facility] 07/30/2023 07:49:33 08/03/2023 text/html Anjum is a 22 y /o presenting @ 40.1 dated by LMP/US. JOSR: 08/02/23 her for NING encounter. Preg complicated by: maternal obesity complicating . She has no significant concerns today and reports normal antepartum symptoms of . She reports going to the ED due to contraction on Jul 11 and was told that it was jaquelin gamez contraction and sent home. She denies vaginal bleeding, dysuria, vaginal discharge, loss of fluid, or contractions. Kelsi Reed MD Attn: Accounting[address] [facility], [place], [address], [facility] 08/18/2023 09:25:36 08/24/2023 text/html Anjum is a 22 y o G1 now P1 s/p spontenous vaginal delivery of Post-term AGA female at 41w2d on 08/11/23. Complicated by: maternal obesity, varicella non-immune, anemia of and GBS positive. Delivery complicated by hemorrhageLaceratio ns: 1st degreeEBL: 1040 mlPreHgb 9.7 g/dL, Post Hgb 8.5 g/dLBirth DetailsAPGARs: 9 / 9Birth Weight: 8 lb 10.3 oz (3.92 kg) Course: uncomplicated Today, patient reports doing well. Bonding well with baby and no concerns today. No fever, chills, headaches, changes in vision, dizziness, chest pain, shortness of breath, abdominal pain, or leg swelling.- Bowels: no difficulty with bowel movements or pain with urination- Bleeding: none to minimal spotting- Blues (EDPS): negative- Control: unsure at this time Kelsi Reed MD Attn: Accounting,[address] [facility], [place], [address], [facility] 09/02/2023 09:19:51 10/07/2023 text/html Anjum is a 23 y o G1 now P1 s/p spontaneous vaginal delivery of Post-term AGA female at 41w2d on 08/11/23. Complicated by: maternal obesity, varicella non-immune, anemia of and GBS positive. Delivery complicated by hemorrhageLaceratio ns: 1st degreeEBL: 1040 mlPreHgb 9.7 g/dL, Post Hgb 8.5 g/dL DetailsAPGARs: irth Weight: 8 lb 10.3 oz (3.92 kg) Course: uncomplicated Today, patient reports doing well. Bonding well with baby and no concerns today. No fever, chills, headaches, changes in vision, dizziness, chest pain, shortness of breath, abdominal pain, or leg swelling.- Bowels: no difficulty with bowel movements or pain with urination- Bleeding: none- Blues (EDPS): negative- Control: unsure at this time Elaine Beltran MD Attn: Accounting[address] [place], [address], [facility] 10/21/2023 12:06:34 OBGyn Episode Ob Episode Information Episode Created Date Number of Fetuses Patient Bloodtype Patient rh Status Prepregnancy Weight lbs Domestic Partner Domestic Partner Phone Father Name Mammography Tech Status 07/14/20 24 1 DELETED Fetus Data First Name Last Name Admitted to NICU Weight (g) Sex Living Outcome Pediatric Complications Fetus ID Race Codes Race Delivery Type [id number] Josr Calculation Initial Josr Date Initial Exam Date Initial Exam Provider Initial Ultrasound Date Last Menstrual Period Date Ultra Sound Weeks Gestation 07/14/2024 05/13/2024 0 Eighteen To Twenty Week Josr Update Ultra Sound Date Fundal Height At Umbil Quickening Date Ultra Sound Latest Weeks Gestation Final Josr Confirmed By Final Josr Confirmed Date Final Josr Date Ultra Sound Latest Days Gestation 0 0 Menstrual History Last Menstrual Date Menses Monthly On Bcp Conception Prior Menses Frequency Hcg Plus Date Menarche Onset Age 0905/13/2024 Delivery Information Delivery Date Delivery Type Labor Anesthesia Weeks Gestation Incision Type Labor Labor Length Hrs Delivered By Post Complications Tubal Sterilization Discharge Date Comments Discharge Information Feeding Method Contraceptive Method Maternal HG B and HCT Levels Ob Episode Information Episode Created Date Number of Fetuses Patient Bloodtype Patient rh Status Prepregnancy Weight lbs Domestic Partner Domestic Partner Phone Father Name Mammography Tech Status 12/15/19 23 1 B Positive CLOSED Fetus Data First Name Last Name Admitted to NICU Weight (g) Sex Living Outcome Pediatric Complications Fetus ID Race Codes Race Delivery Type Ana Anderson rbangela false [id number] [id number] F true Full Term 32017 2106-3 White Vaginal Problems Problem Notes Plans to bottle feed. If boy , yes to circ. Yes to epidural. Problem Name Start Date End Date Resolution Snomed Code Not e Varicella non-immune 01/13/2023 [id number] 9 will PP varicella Maternal obesity complicating , childbirth and the puerperium, antepartum 01/13/2023 [id number] Goal weight gain Routine care 01/13/2023 [id number] Anemia of 02/10/2023 [id number] Josr Calculation Initial Josr Date Initial Exam Date Initial Exam Provider Initial Ultrasound Date Last Menstrual Period Date Ultra Sound Weeks Gestation 08/02/2023 12/14/2022 [email or web address] 01/13/2023 10/26/2022 11 Eighteen To Twenty Week Josr Update Ultra Sound Date Fundal Height At Umbil Quickening Date Ultra Sound Latest Weeks Gestation Final Josr Confirmed By Final Josr Confirmed Date Final Josr Date Ultra Sound Latest Days Gestation 0 mmetias 03/12/2023 08/02/20 23 0 Pre- Flowsheet Flowsheet Date 01/13/2023 Khan Score Blood Edema Fundus Height Fundus Units Glucose Ketones Leukocytes Nitrite Labor Signs Protein Cervic Dilation Cervic Effacement Cervic Station neg none none negative neg Type Weight in lbs Pre/Post Dialysis Refused Weight 220.505894351993 BP Diastolic BP Location Tested BP Systolic BP Type 80 110 sitting Fetus Heart Rate Present A 168 Present Fetus Movement [facility] is a 22 y/o p resenting @ 11.2 dated by estimated LMP 10/26/22; here for initial OB encounter. Preg complicated by: maternal obesity complicating . She has no significant concerns today and reports normal antepartum symptoms of . She denies vaginal bleeding, vaginal discharge, loss of fluid, or contractions. She has not had a visit to ED or Triage.First dating ultrasound completed: 01/13/23Dating US consistent with LMP: 10/26/22EDD: 08/02/23 based on LMP/US- anticipatory guidance provided- continue PNV- recommending starting Aspirin 81 mg daily at 12 weeks. - follow-up pending results or in weeks Flowsheet Date 02/10/2023 Khan Score Blood Edema Fundus Height Fundus Units Glucose Ketones Leukocytes Nitrite Labor Signs Protein Cervic Dilation Cervic Effacement Cervic Station trace none none negative neg Type Weight in lbs Pre/Post Dialysis Refused Weight 221.539422763281 BP Diastolic BP Location Tested BP Systolic BP Type 80 112 sitting Fetus Heart Rate Present A 151 Present Fetus Movement Comments Anjum is a 22 y/o p resenting @ 15.1 dated by 11.2 wk US; f/u on . Preg complicated by: maternal obesity complicating and anemia. She has no significant concerns today and reports normal antepartum symptoms of . She denies vaginal bleeding, vaginal discharge, loss of fluid, or contractions. She has not had a visit to ED or Triage.Pt has anemia that presented on initial OB labs. She has never been worked up for anemia in the past but has been told that she is not able to donate blood do to low Hb. We will work up for causes of microcytic anemia and tx accordingly. She is on ASA and PNV. Started on vit B6 and Fe fumarate. Discussed using miralax if she becomes constipated. Flowsheet Date 03/12/2023 Khan Score Blood Edema Fundus Height Fundus Units Glucose Ketones Leukocytes Nitrite Labor Signs Protein Cervic Dilation Cervic Effacement Cervic Station neg none 20 cm none small neg Type Weight in lbs Pre/Post Dialysis Refused Weight 220.24261539048 BP Diastolic BP Location Tested BP Systolic BP Type 80 110 sitting Fetus Heart Rate Present A 148 Present Fetus Movement Comments Anjum is a 22 y/o p resenting @ 19.4 dated by LMP/US. JOSR: 08/02/23 her for NING encounter. Preg complicated by: maternal obesity complicating . She has no significant concerns today and reports normal antepartum symptoms of . Patient has yet to see MFM because she wanted more time to think about it. She denies vaginal bleeding, vaginal discharge, loss of fluid, or contractions. She has not had a visit to ED or Triage.- anticipatory guidance provided- continue PNV- continue Aspirin 81 mg daily. - continue Fe fumarate- continue miralax daily or as needed for constipation- 1 hr glucose test, AFP and Anatomy US ordered - follow-up pending results or in 4 weeks Flowsheet Date 04/02/2023 Khan Score Blood Edema Fundus Height Fundus Units Glucose Ketones Leukocytes Nitrite Labor Signs Protein Cervic Dilation Cervic Effacement Cervic Station 23 cm Type Weight in lbs Pre/Post Dialysis Refused With clothes 221.147435220042 BP Diastolic BP Location Tested BP Systolic BP Type 67 102 sitting Fetus Heart Rate Present A 133 Present Fetus Movement A Yes Comments Anjum is a 22 y/o p resenting @ 22+4 dated by LMP/US. JOSR: 08/02/23 her for NING encounter. Preg complicated by: maternal obesity complicating . She has no significant concerns today and reports normal antepartum symptoms of . Patient has yet to see M. Patient reports receiving a call to schedule her anatomy US, which she has not done. Patient reports visiting urgent care for dysuria and was told to have UTI. Patient was prescribed keflex, which she did not complete antibiotic course. She denies vaginal bleeding, dysuria, vaginal discharge, loss of fluid, or contractions. She has not had a visit to ED or Triage.- anticipatory guidance provided- continue PNV- continue Aspirin 81 mg daily. - continue Fe fumarate- continue miralax daily or as needed for constipation- Anatomy US ordered and pending- follow-up in 4 weeks Flowsheet Date 04/29/2023 Khan Score Blood Edema Fundus Height Fundus Units Glucose Ketones Leukocytes Nitrite Labor Signs Protein Cervic Dilation Cervic Effacement Cervic Station neg none 27 cm none large trace Type Weight in lbs Pre/Post Dialysis Refused With clothes 223.843788572066 BP Diastolic BP Location Tested BP Systolic BP Type 70 109 sitting Fetus Heart Rate Present A 140 Present Fetus Movement Comments Anjum is a 22 y/o p resenting @ 26+3 dated by LMP/US. JOSR: 08/02/23 her for NING encounter. Preg complicated by: maternal obesity complicating . She has no significant concerns today and reports normal antepartum symptoms of . Patient reports her anatomy US scheduled for May 26. She denies vaginal bleeding, dysuria, vaginal discharge, loss of fluid, or contractions. She has not had a visit to ED or Triage.- anticipatory guidance provided- continue PNV- GTT 1 hr already done and passed - Tdap today - continue Aspirin 81 mg daily. - continue Fe fumarate- continue miralax daily or as needed for constipation- Anatomy US scheduled may 26 - follow-up in 4 weeks Flowsheet Date 05/18/2023 Khan Score Blood Edema Fundus Height Fundus Units Glucose Ketones Leukocytes Nitrite Labor Signs Protein Cervic Dilation Cervic Effacement Cervic Station neg none 30 cm none negative trace Type Weight in lbs Pre/Post Dialysis Refused With clothes 225.298074554691 BP Diastolic BP Location Tested BP Systolic BP Type 78 137 sitting 71 108 sitting Fetus Heart Rate Present A 135 Present Fetus Movement A Yes Comments Anjum is a 22 y/o p resenting @ 29+1 dated by LMP/US. JOSR: 08/02/23 her for NING encounter. Preg complicated by: maternal obesity complicating . She has no significant concerns today and reports normal antepartum symptoms of . Patient reports going to the ED on 05/04 after noticing a bleeding with wiping after using the restroom. Patient reports panicking and reporting to the ED. She said they did cervical check during that visit and she was assured that she was not dilating and discharged home. She denies experiencing similar symptoms since that day. Patient reports her anatomy US scheduled for May 26. She denies vaginal bleeding, dysuria, vaginal discharge, loss of fluid, or contractions. FHR reassuring. - anticipatory guidance provided- continue PNV- continue Aspirin 81 mg daily. - continue Fe fumarate- continue miralax daily or as needed for constipation- Anatomy US scheduled may 26 - follow-up in 4 weeks Flowsheet Date 07/06/2023 Khan Score Blood Edema Fundus Height Fundus Units Glucose Ketones Leukocytes Nitrite Labor Signs Protein Cervic Dilation Cervic Effacement Cervic Station neg none 36 wks none negative neg Type Weight in lbs Pre/Post Dialysis Refused With clothes 233.952561453736 BP Diastolic BP Location Tested BP Systolic BP Type 76 112 sitting Fetus Heart Rate Present A 135 Present Fetus Movement A Yes Comments Anjum is a 22 y/o p resenting @ 36.1 dated by LMP/US. JOSR: 08/02/23 her for NING encounter. Preg complicated by: maternal obesity complicating . She has no significant concerns today and reports normal antepartum symptoms of . She denies vaginal bleeding, dysuria, vaginal discharge, loss of fluid, or contractions. FHR reassuring. - anticipatory guidance provided- continue PNV- Labs pending (cbc, GBS, tric/GN/Chlamydia)- continue Aspirin 81 mg daily. - continue Fe fumarate- continue miralax daily or as needed for constipation- follow-up in 1 weeks Flowsheet Date 07/13/2023 Khan Score Blood Edema Fundus Height Fundus Units Glucose Ketones Leukocytes Nitrite Labor Signs Protein Cervic Dilation Cervic Effacement Cervic Station neg none 38 wks none trace neg Type Weight in lbs Pre/Post Dialysis Refused With clothes 235.195441054902 BP Diastolic BP Location Tested BP Systolic BP Type 74 113 sitting Fetus Heart Rate Present A 134 Present Fetus Movement A Yes Comments Anjum is a 22 y/o p resenting @ 37.1 dated by LMP/US. JOSR: 08/02/23 her for NING encounter. Preg complicated by: maternal obesity complicating . She has no significant concerns today and reports normal antepartum symptoms of . She reports going to the ED due to contraction on Jul 11 and was told that it was jaquelin gamez contraction and sent home. She denies vaginal bleeding, dysuria, vaginal discharge, loss of fluid, or contractions. FHR reassuring. - anticipatory guidance provided- continue PNV- continue Aspirin 81 mg daily. - continue Fe fumarate- continue miralax daily or as needed for constipation- ultrasound scheduled for 10:30 AM today- follow-up in 1 weeks Flowsheet Date 07/20/2023 Khan Score Blood Edema Fundus Height Fundus Units Glucose Ketones Leukocytes Nitrite Labor Signs Protein Cervic Dilation Cervic Effacement Cervic Station neg none 39 trace trace trace Type Weight in lbs Pre/Post Dialysis Refused With clothes 240.049327988054 BP Diastolic BP Location Tested BP Systolic BP Type 73 125 sitting Fetus Heart Rate Present A 134 Present Fetus Movement A Yes Comments Anjum is a 22 y/o p resenting @ 38.1 dated by LMP/US. JOSR: 08/02/23 her for NING encounter. Preg complicated by: maternal obesity complicating . She has no significant concerns today and reports normal antepartum symptoms of . She denies vaginal bleeding, dysuria, vaginal discharge, loss of fluid, or contractions. FHR reassuring.- anticipatory guidance provided- continue PNV- continue Aspirin 81 mg daily. - continue Fe fumarate- continue miralax daily or as needed for constipation- follow-up in 1 weeks Flowsheet Date 07/26/2023 Khan Score Blood Edema Fundus Height Fundus Units Glucose Ketones Leukocytes Nitrite Labor Signs Protein Cervic Dilation Cervic Effacement Cervic Station neg none 39 cm none negative trace 1cm 80% -3 Type Weight in lbs Pre/Post Dialysis Refused With clothes 240.398381515075 BP Diastolic BP Location Tested BP Systolic BP Type 72 109 sitting Fetus Heart Rate Present A 134 Present Fetus Movement A Yes Comments Anjum is georgie 22 y/o p resenting @ 39 dated by LMP/US. JOSR: 08/02/23 her for NING encounter. Preg complicated by: maternal obesity complicating . She has no significant concerns today and reports normal antepartum symptoms of . She denies vaginal bleeding, dysuria, vaginal discharge, loss of fluid, or contractions. FHR reassuring. - anticipatory guidance provided- continue PNV- continue Aspirin 81 mg daily. - continue Fe fumarate- continue miralax daily or as needed for constipation- follow-up in 1 weeks Flowsheet Date 08/03/2023 Khan Score Blood Edema Fundus Height Fundus Units Glucose Ketones Leukocytes Nitrite Labor Signs Protein Cervic Dilation Cervic Effacement Cervic Station neg none 40 cm none negative neg 1cm 40% - 3 Type Weight in lbs Pre/Post Dialysis Refused Weight 239.337399488391 BP Diastolic BP Location Tested BP Systolic BP Type 80 130 sitting Fetus Heart Rate Present A 125 Present Fetus Movement A Yes Comments Anjum is a 22 y/o p resenting @ 40.1 dated by LMP/US. JOSR: 08/02/23 her for NING encounter. Preg complicated by: maternal obesity complicating . She has no significant concerns today and reports normal antepartum symptoms of . She denies vaginal bleeding, dysuria, vaginal discharge, loss of fluid, or contractions. FHR reassuring. - anticipatory guidance provided- continue PNV- continue Aspirin 81 mg daily. - continue Fe fumarate- continue miralax daily or as needed for constipation- Will schedule for induction Flowsheet Date 08/24/2023 Khan Score Blood Edema Fundus Height Fundus Units Glucose Ketones Leukocytes Nitrite Labor Signs Protein Cervic Dilation Cervic Effacement Cervic Station Type Weight in lbs Pre/Post Dialysis Refused With clothes 221.427760329658 BP Diastolic BP Location Tested BP Systolic BP Type 81 R arm 123 sitting Fetus Heart Rate Present Fetus Movement Comments Menstrual History Last Menstrual Date Menses Monthly On Bcp Conception Prior Menses Frequency Hcg Plus Date Menarche Onset Age 0210/26/2022 Genetic Screening And Infection History Question Response Note Patient's Age Will Be 35 Years Or Older At Estim ated Date of Delivery false Thalassemia (Albanian, English, Mediterranean, Or Background): MCV < 80 false Neural Tube Defect (Meningomyelocele, Spina Bifi da, Or Anencephaly) false Congenital Heart Defect false Down Syndrome false Sanju-Sachs (eg, Jainism, Cajun, Ecuadorean-Highlands) f alse Miriam Disease false Sickle Cell Disease Or Trait () false Hemophilia Or Other Blood Disorders false Muscular Dystrophy false Cystic Fibrosis false Malverne's Chorea false Mental Retardation/Autism false If Yes, Was Person Tested For Fragile X? false Other Inherited Genetic Or Chromosomal Disorder false Maternal Metabolic Disorder (eg, Type 1 Diabetes , PKU) false Patient Or Baby's Father Had A Child With Defects Not Listed Above false Recurrent Loss, Or A Stillbirth false Medications (including Suppl ements, Vitamins, Herbs, OTC Drugs), Illicit/Recreational Drugs, Alcohol false If Yes, Agent(s) And Strength/Dosage false Any Other Genetic History false Live With Someone With TB Or Exposed To TB false Patient Or Partner Has History Of Genital Herpes false Rash Or Viral Illness Since Last Menstrual Perio d false History Of STD, Gonorrhea, Chlamydia, HPV, Syphi lis false Other Infection History false History of HIV false History of Hepatitis false Prior GBS-infected child false Delivery Information Delivery Date Delivery Type Labor Anesthesia Weeks Gestation Incision Type Labor Labor Length Hrs Delivered By Post Complications Tubal Sterilization Discharge Date Comments 3 Sponta neous Regional-Ep idural 41.2 false Kelsi Reed MD None false 08/13/2023 Discharge Information Feeding Method Contraceptive Method Maternal HG B and HCT Levels Bottle
--- OUTSIDE RECORDS SUMMARY | 2025-03-21 17:56 | XMS_ITS | Referral Summary ---
Author Organization [facility] Healthcare Address [address] [place] [address] Care Team Providers Care Reverberatory Furnace Operator Name Role Phone Cristin Alvares MD Primary Care Provider [phone] Allergies Active Allergy Reactions Criticality Noted Date [...] Immunization Administration Dates Next Due Varicella 08/13/2023 Social History Tobacco Use Types Packs/Day Years [...] often do you attend chur ch or congregational services? Never 08/09/2023 Do you belong to any clubs o r organizations such as orthodox groups, unions, fraternal or athletic groups, or [...] staff should administer the PHQ-9) 0 08/09/2023 [facility] Occupat ional Health - Occupational Stress [...] money to buy more. Never true 08/09/20 Within the past 12 months, t he [...] place to sleep or slept in a residential (including now)? No 08/09/2023 Personal Safety Answer Date Recorded Have you ever been in or are you currently in a harmful physical or emotional relationship or is someone making you feel afraid or unsafe? 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 TRACK MECHANIC Gender Identity Not on file Sexual Orientation Not on file Last Filed Vital Signs Vital Sign Reading Time Taken Comments Blood Pressure 138/82 08/02/2024 3:30 PM TRACK MECHANIC Pulse 72 08/02/2024 3:30 PM TRACK MECHANIC Temperature 36.7 C (98 F) 08/02/2024 12:06 PM TRACK MECHANIC Respiratory Rate 18 08/02/2024 3:30 PM TRACK MECHANIC Oxygen Saturation 98% 08/02/2024 3:30 PM TRACK MECHANIC Inhaled Oxygen Concentration - - Weight 72.6 kg (160 lb) 08/02/2024 12:06 PM TRACK MECHANIC Height 152.4 cm (5') 08/02/2024 12:06 PM TRACK MECHANIC Body Mass Index 31.25 08/02/2024 12:06 PM TRACK MECHANIC Plan of Treatment Not on file Procedures Procedure Name Priority Date/Time Associated Diagnosis [...] ANTONIETTA ELIZABETH Comment: Testing performed by the [facility]. This assay detects Chlamydia trachomatis and [...] MICROBIOLOGY - GENE RAL ORDERABLES Final Result ANTONIETTA [address] Department of Laboratories [place] [phone] * (ABNORMAL) Pap with reflex to High Risk HPV (04/28/2022 11:21 AM CDT) Thin prep (Pap test) 04/28/2022 11:21 AM CDT 04/28/2022 11:21 AM CDT Narrative PATHOLOGY [facility] - 04/30/2022 3:15 PM CDT [facility] Department of Pathology [address] [place] [id number] Final Report with Addendum Note to [...] the details. Patient Name: ANJUM TRUJILLO Address: [address] [place] [address] Gender: F : 2000 (Age: 21) Service: Laboratory Location: Lab Hospital #: [id number] Patient Type: [facility] Lab Taken: 04/28/2022 Received: 04/28/2022 Accessioned:: 04/29/2022 Reported: 04/30/2022 Physician(s): Carmita Brothers D.O. Diagnosis: Source of Specimen: Imaged Thinprep Pap Test w/ Reflex HPV - Professor Of Practice Cytologic Material Specimen Adequacy: - Satisfactory for [...] Thinprep Pap Test w/ Reflex HPV - Professor Of Practice Cytologic Material Clinical History: Last Menstrual Period: [...] determined by the Surgical Pathology Department at [facility] as part of an ongoing quality review trainer program and in compliance with federally mandated [...] characteristics determined by the Surgical Pathology Department [facility]. It has not been cleared or approved by the U. S. Food and Drug Administration. Opal Washington DO LAB CYTOLOGY ORDERABLES Final Result Performing Organization Address City/State/[facility] Co de Phone Number [facility] [address] [place] [address] from Last 3 Months or Most Recently Relevant to Health Maintenance [place] [address] [place] [address] [facility] MEDICAID [facility] MEDICAID Advance Directives For more information, please contact: [phone] * Full Code (Latest Code Status on File) Date Activated Date Inactivated Comments 08/11/2023 9:48 PM 08/13/2023 11:06 PM * Full Code Date Activated Date Inactivated Comments 08/09/2023 7:05 PM 08/11/2023 9:48 PM Full CPR in case of cardiopulmonary arrest Care Teams Reverberatory Furnace Operator Relationship Specialty Start Date End Date Cristin Alvares MD PCP - General Family Medicine 04/19/23
[2025-03-21 18:06] VITALS: BP 136/62; PULSE 86; RESP 18; TEMP 36.4; O2SAT 100
--- NOTE | 2025-03-21 18:07 | ED.UPPEXIN ---
HPI - Extremity Injury (Upper) General Chief Complaint: Extremity Injury, Upper Stated Complaint: Left Thumb Injury Time Seen by Provider: 03/21/25 18:07 Source: patient Mode of arrival: ambulatory Limitations: no limitations History of Present Illness HPI narrative: 24 yo F presents with c/o L thumb pain. 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 ROM decreased due to pain, distal NV intact. All systems reviewed and negative except as noted above. Related Data Home Medications ?Medication ?Instructions ?Recorded ?Confirmed ?Last Taken ?Type No Home Medications 03/21/25 Unknown History Allergies Allergy/AdvReac Type Severity Reaction Status Date / Time No Known Allergies Allergy Verified 03/21/25 18:07 Review of Systems Review of Systems: CONSTITUTIONAL: Denies fever, chills, or sweats. EYES: Denies visual changes, redness, or discharge. ENT: Denies rhinorrhea, congestion, sore throat, or otalgia. CARDIOVASCULAR: Denies chest pain, palpitations, or edema. RESPIRATORY: Denies cough or dyspnea. GASTROINTESTINAL: Denies abdominal pain, nausea, vomiting, or diarrhea. GENITOURINARY: Denies dysuria or hematuria. SKIN: Denies rash or itching. MUSCULOSKELETAL: Denies back pain, joint pain, or myalgia. Reports pain to left thumb NEUROLOGIC: Denies headache, numbness, or weakness. PSYCHIATRIC: Denies anxiety or depression. All other systems reviewed are negative, except as documented in HPI. [facility] Past Medical History Medical History Asthma Fractures Wrist Surgical History Surgical History History of tonsillectomy Family History Family History Father High cholesterol Social History Social History Smoking status: Never smoker Alcohol intake: never Substance use: never Additional living arrangements comments: Lives with fiance Gender identity (if verbalized by the patient): Female Sexual Orientation (if Verbalized by the Patient): Straight or Heterosexual Spiritual care concerns: No Comments At time of signature, agree with nursing past medical, surgical, social and family history. There is no relevant family history pertinent to the presenting complaint. Exam Narrative: GENERAL: This is a well-nourished, well-developed patient, in no apparent distress. HEAD: normocephalic, atraumatic. EYES: PERRL. Sclera clear/white. Vision is grossly intact. EARS: External ears normal NOSE: External nose normal NECK: Neck supple, non-tender without lymphadenopathy, masses or thyromegaly. CARDIOVASCULAR: Regular rate and rhythm without murmurs, gallops, or rubs. RESPIRATORY: Clear to auscultation. Breath sounds equal bilaterally. No wheezes, rales, or rhonchi. SKIN: warm, Dry, intact with no suspicious lesions or rash, good texture and turgor. NEURO: awake, alert, and oriented to person, place and time. There were no obvious focal neurologic abnormalities. EXTREMITIES: tenderness to proximal fill neck is left thumb on palpation without deformity. No swelling noted. Range of motion decreased due to pain. Course Course Level of Care: Express Care Visit Vital Signs Vital signs: Vital Signs Temperature 36.4 C 03/21/25 18:06 Pulse Rate 86 03/21/25 18:06 Respiratory Rate 18 03/21/25 18:06 Blood Pressure 136/62 03/21/25 18:06 Pulse Oximetry 100 03/21/25 18:06 Oxygen Delivery Room Air 03/21/25 18:06 Temperature 36.4 C 03/21/25 18:06 Pulse Rate 86 03/21/25 18:06 Respiratory Rate 18 03/21/25 18:06 Blood Pressure 136/62 03/21/25 18:06 Pulse Oximetry 100 03/21/25 18:06 Oxygen Delivery Room Air 03/21/25 18:06 Reviewed MDM - Extremity Injury (Upper) MDM Narrative Medical decision making narrative: x-ray left thumb normal. Discussed results with patient. Recommend thumb spica, ibuprofen. Will see primary care physician if pain not improving. Differential Diagnosis Differential diagnosis: Likely other ( thumb fracture, thumb sprain, thumb strain) Imaging Data My impression: Agree with radiologist Radiologist's impression: EXAM: XR finger 1st LT min 2V DATE: 03/21/2025 18:17 HISTORY: JAMMING INJURY, PROX PHALANX PAIN . COMPARISON: None available. FINDINGS: Normal mineralization. No fracture or dislocation. No lytic or blastic lesion. Joint spaces are maintained. No erosion or periosteal change. Soft tissues within normal limits. IMPRESSION: No acute osseous finding in the left thumb. Discharge Plan Discharge Clinical Impression: Pain of left thumb Patient Disposition: Home Condition: Stable Instructions: Finger Sprain (ED) Additional Instructions: the x-ray of your left thumb was normal. Take ibuprofen or Tylenol every 6-8 hours as needed for pain. Purchase a thumb spica and wear for the next 1-2 weeks when actively using left hand, remove several times during the day and do [id number] exercises. follow-up with your doctor if pain is not improving. Patient Language: Danish Prescriptions: No Action No Home Medications Follow-up/Referrals: PHYSICIAN,BUDGET REPORT CLERK [Primary Care Provider] - Time of Disposition: 18:28
== END 2025-03-21 18:30 | disposition home or self-care (01) ==
PROVIDERS: Emergency Provider Nurse Practitioner Family
DX: M79.645 Pain in left finger(s) (principal); J45.909 Unspecified asthma, uncomplicated
CPT/HCPCS: 73140; 99213; G0463

== ENCOUNTER 2025-07-16 16:15 | Emergency (ER) | payer OTHER, SELFPAY ==
--- NOTE | ~2025-07-16 | XR_ITS ---
EXAMINATION: XR shoulder LT min 2V DATE: 07/16/2025 16:56 INDICATION: Left shoulder pain TECHNIQUE: AP internally and externally rotated views of the left shoulder were obtained. COMPARISON: 10/02/2023 FINDINGS: Normal alignment. No fracture. Glenohumeral and acromioclavicular joint spaces are normal. Soft tissues are unremarkable. Visualized portion of the lungs are clear. IMPRESSION: Negative left shoulder radiographs. Reviewed, dictated and finalized at location A. STIC INTELLIGENCE SPECIALIST
--- OUTSIDE RECORDS SUMMARY | 2025-07-16 16:17 | XMS_ITS | Clinical Summary ---
Author Organization [facility] Address [address] [place] [address] Phone Care Team Providers Care Handstitching Machine Armhole Feller Name Role Phone Chucho Kruger MD Unavailable Allergies Active Allergy Reactions Criticality Noted Date [...] Comments Hepatitis C Virus (HCV) Screening 2000 Pap Smear 04/28/2025 04/28/2022 Influenza Immunization (#1) 2025 1009/2014, 06/26/2014, 06/14/2012, Additional history exists SARS-COV-2 Immunization ( - 2024- season) 2025 DTaP/Tdap/Td Immunization (8 - Td or Tdap) [...] Priority Date/Time Associated Diagnosis Comments PATHOLOGY CYTOLOGY DISPATCH SPECIALIST 04/28/2022 12:00 AM CDT from Last 3 Months or Most Recently Relevant to Health Maintenance Results * PATHOLOGY CYTOLOGY DISPATCH SPECIALIST (04/28/2022 12:00 AM CDT) 04/28/2022 us Not [...] measures to stabilize the patient. Care Teams Handstitching Machine Armhole Feller Relationship Specialty Start Date End Date Chucho Kruger MD [address] [id number] Consulting Physician General Surgery 01/11/24
--- OUTSIDE RECORDS SUMMARY | 2025-07-16 16:17 | XMS_ITS | Clinical Summary ---
Author Organization [facility] Healthcare Address [address] [place] [address] Care Team Providers Care Police Commissioner Name Role Phone Cristin Alvares MD Primary Care Provider [phone] Allergies Active Allergy Reactions Criticality Noted Date [...] hemorrhage 08/13/2023 41 weeks gestation of 08/09/2023 Immunizations Immunization Administration Dates Next Due Varicella 08/13/2023 Surgical History Surgery Date Site/Laterality Comments [place] TONSILLECTOMY PRIMARY/SEC ONDARY <AGE 12 Tonsillectomy - 2005 [facility] (Added by [facility]) ADENOIDECTOMY [...] oz pur e alcohol) Social Connection and Isolation Panel Answer Date Recorded In a typical week, how many times do you talk on the phone with family, friends, or neighbors? More than three times a week 08/09/2023 How often do you get togethe r with friends or relatives? More than three times a week 08/09/2023 How often do you attend chur ch or orthodoxy services? Never 08/09/2023 Do you belong to any clubs o r organizations such as restorationism groups, unions, fraternal or athletic groups, or [...] staff should administer the PHQ-9) 0 08/09/2023 [facility] [place] of Occupat ional Health - Occupational Stress [...] place to sleep or slept in a long term (including now)? No 08/09/2023 Personal Safety Answer Date Recorded Have you ever been in or are you currently in a harmful physical or emotional relationship or is someone making you feel afraid or unsafe? 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 Gender Identity Not on file Sexual Orientation [...] al N Livin g 9 9 Alann Fundkeshav [place] se, Issac Almonte MD Complications:None Delivery Location:This Facil ity ([facility]) Last Filed Vital Signs Vital Sign Reading Time Taken Comments Blood Pressure 138/82 08/02/2024 3:30 PM SOCIAL AND POLITICAL STUDIES PROFESSOR Pulse 72 08/02/2024 3:30 PM SOCIAL AND POLITICAL STUDIES PROFESSOR Temperature 36.7 C (98 F) 08/02/2024 12:06 PM SOCIAL AND POLITICAL STUDIES PROFESSOR Respiratory Rate 18 08/02/2024 3:30 PM SOCIAL AND POLITICAL STUDIES PROFESSOR Oxygen Saturation 98% 08/02/2024 3:30 PM SOCIAL AND POLITICAL STUDIES PROFESSOR Inhaled Oxygen Concentration - - Weight 72.6 kg (160 lb) 08/02/2024 12:06 PM SOCIAL AND POLITICAL STUDIES PROFESSOR Height 152.4 cm (5') 08/02/2024 12:06 PM SOCIAL AND POLITICAL STUDIES PROFESSOR Body Mass Index 31.25 08/02/2024 12:06 PM SOCIAL AND POLITICAL STUDIES PROFESSOR Plan of Treatment Health Maintenance Due Date Last Done Comments Hepatitis C Screening 2000 Cervical Cancer Screening 04/28/2023 04/28/2022 Chlamydia and Gonorrhea (GC/CT) Screening 04/28/2023 04/28/2022 Regular Well Visit/Exam 18-64 04/28/2023 04/28/2022 Depression Screening 07/25/2024 07/25/2023, 07/25/2023, 07/11/2023, Additional history exists Influenza Vaccine (#1) 2025 5, 06/26/2014, 06/26/2014, Additional history exists DTaP/Tdap/Td Vaccine [...] C. trachomatis Not detected Not detected ANTONIETTA ELIZABETH N. gonorrhoeae Not detected Not detected ANTONIETTA ELIZABETH Comment: Testing performed by the [facility]. This assay detects Chlamydia trachomatis and [...] Opal Washington DO LAB MICROBIOLOGY - [facility] ORDERABLES Final Result [address] Department [place] [address] * (ABNORMAL) Pap with reflex to High Risk HPV (04/28/2022 11:21 AM CDT) Thin prep (Pap test) 04/28/2022 11:21 AM CDT 04/28/2022 11:21 AM CDT Narrative PATHOLOGY - 04/30/2022 3:15 PM CDT [facility] Department of Pathology [address] [place] [id number] Final Report with Addendum Note to [...] the details. Patient Name: ANJUM TRUJILLO Address: [address] [place] [address] Gender: F : 2000 (Age: 21) Service: Laboratory Location: Lab [facility] #: [id number] Patient Type: Ref Lab Taken: 04/28/2022 Received: 04/28/2022 Accessioned:: 04/29/2022 Reported: 04/30/2022 Physician(s): Carmita Brothers D.O. Diagnosis: Source of Specimen: Imaged Thinprep Pap Test w/ Reflex HPV - Kitchen Mechanic Cytologic Material Specimen Adequacy: - Satisfactory for [...] Thinprep Pap Test w/ Reflex HPV - Kitchen Mechanic Cytologic Material Clinical History: Last Menstrual Period: [...] the Surgical Pathology Department at [facility] as part of an ongoing quality control director program and in compliance with federally mandated [...] characteristics determined by the Surgical Pathology Department [facility]. It has not been cleared or approved by the [place]. S. Food and Drug Administration. Opal Washington DO LAB CYTOLOGY ORDERABLES Final Result PATHOLOGY [address] [place] [address] from Last 3 Months or Most Recently Relevant to Health Maintenance [place] [address] [facility] MEDICA[employer] [facility] MEDICA[employer] Advance Directives For more information, please contact: [phone] * Full Code (Latest Code Status on File) Date Activated Date Inactivated Comments 08/11/2023 9:48 PM 08/13/2023 11:06 PM * Full Code Date Activated Date Inactivated Comments 08/09/2023 7:05 PM 08/11/2023 9:48 PM Full CPR in case of cardiopulmonary arrest Care Teams Police Commissioner Relationship Specialty Start Date End Date Cristin Alvares MD PCP - General Family Medicine 04/19/23
[2025-07-16 16:22] VITALS: BP 135/69; PULSE 87; RESP 20; TEMP 36.9; O2SAT 100
--- NOTE | 2025-07-16 17:11 | ED.UPPEXIN ---
HPI - Extremity Injury (Upper) General Chief Complaint: Extremity Injury, Upper Stated Complaint: left shoulder pain History of Present Illness HPI narrative: patient is a 24-year-old female, presents to [facility] with left shoulder pain, onset of symptoms 3-4 days ago without recollection of injury. She states her pain increases with abduction, particularly when she reaches over her head and is described as a burning sensation. She states she has a history of a partial rotator cuff tear that was found on plain film and an outside hospital however she was told to rest it would resolve, she did not see Ortho for follow-up. She states this was at least 2 years ago and she has had no recurrent symptoms since that time. She has not attempted any modifying factors. She denies chance of . She is right-hand dominant. Related Data Allergies Allergy/AdvReac Type Severity Reaction Status Date / Time No Known Allergies Allergy Verified 07/16/25 16:25 Review of Systems Musculoskeletal: Musculoskeletal: Reports no additional musculoskeletal complaints and Reports as per [facility] Past Medical History Medical History Asthma Fractures Wrist Surgical History Surgical History History of tonsillectomy Family History Family History Father High cholesterol Social History Social History Alcohol intake: never Substance use: never Additional living arrangements comments: Lives with fiance Gender identity (if verbalized by the patient): Female Sexual Orientation (if Verbalized by the Patient): Straight or Heterosexual Spiritual care concerns: No Exam Const: General: cooperative, healthy appearing, comfortable and no acute distress Nutritional Appearance: obese Orientation/consciousness: patient oriented x3 Limitations: no limitations HENMT: Head: normal to inspection Ears: hearing grossly normal bilaterally Face/Nose/Sinus: Normal external nose present Face and sinus: normal facial exam Mouth: Yes Normal oral and palatal mucosa present Teeth and gingiva: dentition normal Eyes: General: appearance normal, both eyes and all related structures Visual Santana: normal visual santana by confrontation Alignment and Position: alignment normal Periorbital: periorbital findings normal Eyelids: eyelids normal Neck: Neck: normal visual inspection, full ROM, no lymphadenopathy, no meningeal signs, trachea midline and supple Other: No cervical spine point tenderness, no step-offs, no trapezius muscle or sternocleidomastoid muscle tenderness to palpation no palpable spasm Resp: Effort & Inspection: normal respiratory effort Auscultation: clear to auscultation bilaterally Cardio: Palpation: normal PMI Rate: regular rate Rhythm: regular rhythm Skin: General skin exam: normal color and no rashes or lesions noted Lesions: no lesions Rashes: no rashes Neuro: General: patient oriented x3, gait normal, tone normal, moves all extremities, no focal motor deficits and CN's II-XI intact bilaterally Extrem: Other: patient has tenderness to palpation the left AC joint and along the left shoulder joint capsule, there is no crepitus with range of motion, she has full range of motion capability but endorses pain when reaching over her head. Distal PMS intact Course Course Emergency Course: plain film imaging is obtained, unremarkable for acute findings. Plan to treat with a short steroid course, close PCP follow-up and/or Ortho follow-up if symptoms are not improving in 1 week. Patient is agreeable plan Level of Care: Express Care Visit ([address]) Vital Signs Vital signs: Vital Signs Temperature 36.9 C 07/16/25 16:22 Pulse Rate 87 07/16/25 16:22 Respiratory Rate 20 07/16/25 16:22 Blood Pressure 135/69 07/16/25 16:22 Pulse Oximetry 100 07/16/25 16:22 Oxygen Delivery Room Air 07/16/25 16:22 Temperature 36.9 C 07/16/25 16:22 Pulse Rate 87 07/16/25 16:22 Respiratory Rate 20 07/16/25 16:22 Blood Pressure 135/69 07/16/25 16:22 Pulse Oximetry 100 07/16/25 16:22 Oxygen Delivery Room Air 07/16/25 16:22 MDM - Extremity Injury (Upper) MDM Narrative Medical decision making narrative: steroids, rest, ice, elevation, ortho follow-up Differential Diagnosis Differential diagnosis: Likely other ( sprain, strain, rotator cuff tear, AC joint sep) Discharge Plan Discharge Clinical Impression: Acute pain of left shoulder Patient Disposition: Home Condition: Stable Instructions: Antibiotic Form, Rotator Cuff Injury (ED) Additional Instructions: REST, ICE THE AREA OFF AND ON FOR THE NEXT COUPLE DAYS COMPLETE STEROIDS DIRECTED, LIMIT LIFTING, PULLING OR REACHING UNTIL PAIN STARTS TO IMPROVE. FOLLOW-UP WITH YOUR PRIMARY CARE PROVIDER OR CONTACT THE ORTHO LISTED BELOW FOR APPOINTMENT IF SYMPTOMS ARE NOT IMPROVING IN 5-7 DAYS Patient Language: Sinhala Prescriptions: New prednisone 20 mg tablet 40 mg PO DAILY 5 Days Qty: 10 0RF Follow-up/Referrals: PHYSICIAN,FRAME BANDER [Primary Care Provider, Internal Medicine] Justice Elam MD [Physician, Orthopedics] Time of Disposition: 17:20
== END 2025-07-16 17:25 | disposition home or self-care (01) ==
PROVIDERS: Emergency Provider Nurse Practitioner Family
DX: M25.512 Pain in left shoulder (principal); J45.909 Unspecified asthma, uncomplicated
CPT/HCPCS: 73030; 99213; G0463